=== PATIENT | female | born 1955 | race Caucasian/White ===

== ENCOUNTER 2020-07-29 17:22 | Inpatient (IN) | payer SELFPAY ==
--- NOTE | ~2020-07-29 | XR_ITS ---
EXAMINATION: XR abdomen/kub 1V EXAM DATE: 08/01/2020 08:55 INDICATION: Colon obstruction . TECHNIQUE: Frontal projection(s) of the abdomen for interpretation. Comparison is made to prior exami nation from 07/29/2020. FINDINGS: Feeding tube is in position. There is severe distention of the colon to the sigmoid. No sm all bowel dilation. No suspicious soft tissue calcifications identified. There are no osseous abnorma lities identified. IMPRESSION: 1. Sigmoid obstruction with severely distended colon proximal to this. The Reviewed, dictated and finalized at location A.
--- NOTE | ~2020-07-29 | XR_ITS ---
EXAMINATION: XR abdomen NG/feed tube insert DATE: 07/29/2020 21:45 INDICATION: Nasogastric tube placement TECHNIQUE: A supine view of the abdomen and lower chest was obtained for evaluation of feeding tube placement. COMPARISON: CT dated 07/29/2020 FINDINGS: Nasogastric tube tip in proximal side port in the body of the stomach. Small amount of excreted contr ast at the bilateral renal collecting systems from the recent prior contrast enhanced CT . Air-fluid level at the splenic flexure of the colon consistent with diarrhea. Visualized mid to lower lungs are clear. Heart size is normal. IMPRESSION: 1. Nasogastric tube in the stomach. Reviewed, dictated and finalized at location A.
--- NOTE | ~2020-07-29 | CT_ITS ---
EXAMINATION: CT abdomen pelvis w con DATE: 07/29/2020 18:36 INDICATION: Lower abdominal pain TECHNIQUE: Computed tomography (CT) of the abdomen and pelvis was performed with 100 mL Omnipaque-350 intravenous contrast. Automated exposure control and iterative reconstruction technique were employe d. The dose-length product was 435.01 mGy-cm. COMPARISON: None FINDINGS: Calcified left lower lobe nodule consistent with old granulomatous disease. Small sliding-type hiatal hernia. Visualized inferior heart appears normal. No pericardial or pleural effusion. There are 3 sm all low-attenuation hepatic lesions, the largest measuring 1.2 cm. Gallbladder, spleen, pancreas, susan ateral adrenal glands and kidneys are normal. There is a large amount of stool in the colon upstream from a 9 cm long stenosing annular mass of the sigmoid colon demonstrating asymmetric circumferential wall thickening with shouldering highly suspicious for obstructing colon cancer. Small bowel is norm al. The appendix is not visualized. No pericecal inflammatory change to suggest acute appendicitis. B ladder is normal. The uterus is not identified and has likely been surgically resected. No free intra peritoneal gas or fluid. No pathologically enlarged abdominal or pelvic lymphadenopathy. Moderate to severe lower lumbar spondylosis. IMPRESSION: 1. Obstructing annular mass in the sigmoid colon highly suspicious for colon cancer. Recommend colono scopy for further evaluation. 2. 3 small low-attenuation hepatic lesions most likely hepatic cysts or hemangiomas although the larg est demonstrates a couple tiny central foci of higher attenuation and could not absolutely exclude ma lignancy either primary or metastatic. Consider further evaluation with pre and postcontrast MRI. 3. Small sliding-type hiatal hernia. Reviewed, dictated and finalized at location A. IMPRESSION: 1. Obstructing annular mass in the sigmoid colon highly suspicious for colon ca ncer. Recommend colonoscopy for further evaluation. 2. 3 small low-attenuation hepatic lesions most likely hepatic cysts or hemangi omas although the largest demonstrates a couple tiny central foci of higher att enuation and could not absolutely exclude malignancy either primary or metastat ic. Consider further evaluation with pre and postcontrast MRI. 3. Small sliding-type hiatal hernia.
[2020-07-29 17:24] VITALS: BP 129/84; PULSE 93; RESP 16; TEMP 36.7; O2SAT 98
[2020-07-29 17:46] LABS: Basophils Absolute Auto 0.1 K/mm3 (0.0-0.1); Basophils Percent Auto 0.4 % (0.2-1.2); Eosinophils Absolute Auto 0.1 K/mm3 (0-0.3); Eosinophils Percent Auto 0.7 % (0-4.4); Hematocrit 40.9 % (37.0-47.0); Hemoglobin 13.6 g/dL (12.0-15.0); Immature Granulocyte Absolute 0.03 K/mm3 (0.00-0.031); Immature Granulocyte Percent A 0.2 % (0-0.5); Lymphocytes Absolute Auto 3.72 K/mm3 (0.9-3.2); Lymphocytes Percent Auto 27.6 % (18.3-44.2); Mean Corpuscular HGB Conc 33.3 g/dl (32-36); Mean Corpuscular Hemoglobin 28.5 pg (26-34); Mean Corpuscular Volume 85.6 fl (80-100); Mean Platelet Volume 9.9 fl (7.4-10.4); Monocytes Absolute Auto 0.9 K/mm3 (0.1-0.6); Neutrophils Absolute Auto 8.6 K/mm3 (1.3-6.7); Neutrophils Percent Auto 64.1 % (45.5-73.1); Platelet Count Result 364 k/mm3 (150-375); Red Blood Count 4.78 M/mm3 (4.2-5.4); Red Cell Distribution Width 13.3 % (11.5-14.5); White Blood Count 13.5 K/mm3 (4.5-10.0)
[2020-07-29 17:50] VITALS: BP 129/84; PULSE 93; RESP 20; TEMP 36.7; O2SAT 98
[2020-07-29 17:56] LABS: Alanine Aminotransferase 21 U/L (4-35); Albumin Level 4.8 g/dL (3.5-5.1); Alkaline Phosphatase 87 U/L (38-126); Anion Gap 12 mmol/L (8-16); Aspartate Amino Transferase 26 U/L (14-36); Bilirubin,Total 0.7 mg/dL (0.2-1.3); Blood Urea Nitrogen 16 mg/dL (7-17); Calcium 10.2 mg/dL (8.4-10.2); Carbon Dioxide 25 mmol/L (22-30); Chloride 103 mmol/L (98-107); Estimated CRCL calculation 56 ml/min; Estimated Glomerular Filt Rate > 60; Glucose 115 mg/dL (65-105); Lipase 50 U/L (23-300); Potassium 3.2 mmol/L (3.4-5.0); Sodium 140 mmol/L (137-145)
--- NOTE | 2020-07-29 18:19 | ED.ABDPAIN ---
HPI - Abdominal Pain General Chief Complaint: Abdominal Pain Stated Complaint: abd pain Time Seen by Provider: 07/29/20 18:18 Source: patient and family Mode of arrival: ambulatory Limitations: no limitations History of Present Illness HPI narrative: Patient is 65 years old white female presents with lower abdominal pain started 2 weeks ago, got worse over the last 4 days. Today associated with nausea and frequent vomiting. Pain is gas-like feeling, constipation-like feeling, no radiation. Patient denies any fever or chills. Patient is a smoker, brother 4 years older than her had history of esophageal cancer for the last 10 years, does not take any medication at home, ilns-uln-axreeth antacid for acid reflux. No family history of colon cancer. History of hysterectomy and appendectomy Related Data Allergies Allergy/AdvReac Type Severity Reaction Status Date / Time No Known Allergies Allergy Verified 07/29/20 18:38 Review of Systems Review of Systems: Narrative: CONSTITUTIONAL: Denies fever, chills, or sweats. EYES: Denies visual changes, redness, or discharge. ENT: Denies rhinorrhea, congestion, sore throat, or otalgia. CARDIOVASCULAR: Denies chest pain, palpitations, or edema. RESPIRATORY: Denies cough or dyspnea. GASTROINTESTINAL: Denies abdominal pain, nausea, vomiting, or diarrhea. GENITOURINARY: Denies dysuria or hematuria. SKIN: Denies rash or itching. MUSCULOSKELETAL: Denies back pain, joint pain, or myalgia. NEUROLOGIC: Denies headache, numbness, or weakness. PSYCHIATRIC: Denies anxiety or depression. Exam Narrative: Exam Narrative: General appearance: Well-developed, well-nourished, sister at the bedside Skin: Normal color Head: Normocephalic, nontraumatic Eyes: Clear conjunctiva ENT: Oropharynx normal, ears normal, nose normal Neck: Supple, nontender Chest and respiratory: Airway patent, no respiratory distress, no accessory muscle use Heart: Regular rate/rhythm Abdomen: Soft, diffuse tenderness lower abdomen mainly right lower quadrant. No guarding or rebound, no organomegaly, quiet bowel sounds Vascular: Normal peripheral pulses, normal capillary refill. Musculoskeletal: Normal range of motion, nontender back Neurologic: Alert and oriented ?3, GI PHYSICIAN is normal as tested, no gross motor deficit Course Course Emergency Course: Stable Consultations Consultation #1: Dr. Albright Date: 07/29/20 Time: 21:26 Consultation #2: DR CHAVEZ Date: 07/29/20 Time: 21:26 Vital Signs Vital signs: Vital Signs Temperature 36.7 C 07/29/20 17:24 Pulse Rate 93 07/29/20 17:24 Respiratory Rate 16 07/29/20 17:24 Blood Pressure 129/84 07/29/20 17:24 Pulse Oximetry 98 07/29/20 17:24 Temperature 36.7 C 07/29/20 17:50 Pulse Rate 96 07/29/20 20:15 Respiratory Rate 16 07/29/20 20:15 Blood Pressure 159/78 H 07/29/20 20:30 Pulse Oximetry 93 07/29/20 20:30 MDM - Abdominal Pain MDM Narrative Medical decision making narrative: Physical exam showed diffuse tenderness mainly right lower quadrant consistent with CAT scan result of obstructing colon mass with constipation. Patient had nausea and frequent vomiting. Patient will be admitted, NG tube ordered. GI consult, surgical consult ordered. Risk factor of colon cancers are history of smoking, family history of esophageal cancer, patient never had colonoscopy in the past. Differential Diagnosis Differential diagnosis: Likely abdominal pain, constipation, diverticulitis and small bowel obstruction Lab Data Result diagrams: 07/29/20 17:40 07/29/20 17:40 Labs: Lab Results 07/29/20 07/29/20 07/29/20 Range/Units 17:40 17:40 20:11 WBC 13.5
[2020-07-29] MEDS: SODIUM CHLORIDE 0.9% IV 1,000 ML 999 ML IV CONT (18:38)
[2020-07-29 19:15] VITALS: BP 161/77; PULSE 85; RESP 16; O2SAT 97
[2020-07-29 20:15] VITALS: BP 150/72; PULSE 96; RESP 16; O2SAT 94
[2020-07-29 20:30] VITALS: BP 159/78; O2SAT 93
[2020-07-29 20:30] LABS: Add Urine Microscopic? YES; Appearance Urine Clear (Clear); Bilirubin Urine Negative (Negative); Blood Urine 2+ (Negative); Color Urine Yellow (Yellow); Glucose Urine UA Negative (Negative); Ketones Urine 1+ mg/dL (Negative); Leukocyte Esterase Ur Negative LEU/UL (Negative); Mucus Urine Rare /lpf; Nitrate Urine Negative (Negative); Protein Urine Negative (Negative); Squamous Epithelial Cell Urine Rare /hpf (Few); Urobilinogen Urine Negative mg/dL (<2.0); WBC Urine 0-3 /hpf
[2020-07-29 20:38] LABS: Specific Grav Ur 1.005 (1.001-1.035)
[2020-07-29] MEDS: ONDANSETRON INJ 4 MG/2 ML VIAL IV PUSH (21:07)
[2020-07-29] MEDS: HYDROmorphone HCL INJ (*CRX) 1 MG/ML SYR 0.5 MG IV PUSH ×2 (21:10→22:52)
--- NOTE | 2020-07-29 22:10 | ADMGEN ---
This patient, Noemi Byrd, was admitted to Medical Room 252-01. Patient/family oriented to hospital policies and general routines including ID bracelet, bed and alarms, visiting hours, pain management, procedures, bathroom and other care routines, personal items, smoking policy, room service/diet, and visiting hours. Information on how to activate the Rapid Response Team has been discussed. Patient/Family are encouraged to report perceived risks to care and to ask questions if they do not understand what they are told or what they should do.
[2020-07-29 22:29] VITALS: BP 151/76; PULSE 91; RESP 20; TEMP 37.3; O2SAT 92; BMI 25.2
[2020-07-29] MEDS: SODIUM CHLORIDE 0.9% IV 1,000 ML 150 ML IV CONT (22:33)
[2020-07-30] VITALS (7 sets, daily range): BP systolic 143–155; BP diastolic 62–71; PULSE 73–87; RESP 16–20; TEMP 36.2–37.1; O2SAT 92–97
[2020-07-30] MEDS: SODIUM CHLORIDE 0.9% IV 1,000 ML 150 ML IV CONT (05:09)
[2020-07-30 05:43] LABS: Anion Gap 5 mmol/L (8-16); Blood Urea Nitrogen 14 mg/dL (7-17); Calcium 8.3 mg/dL (8.4-10.2); Carbon Dioxide 24 mmol/L (22-30); Chloride 109 mmol/L (98-107); Estimated CRCL calculation 62 ml/min; Estimated Glomerular Filt Rate > 60; Glucose 95 mg/dL (65-105); Potassium 2.9 mmol/L (3.4-5.0); Sodium 138 mmol/L (137-145)
[2020-07-30] MEDS: HYDROmorphone HCL INJ (*CRX) 1 MG/ML SYR 0.5 MG IV PUSH ×3 (06:20→20:51)
[2020-07-30 07:45] LABS: Magnesium 1.9 mg/dL (1.6-2.3)
--- NOTE | 2020-07-30 08:50 | PM.IMHP ---
H&P: HPI History of Present Illness Date/Time: 07/30/20 08:50 Chief Complaint: abdominal pain Narrative: This is a 65 year old woman with history of heartburn, who presented to the ER with complaints of gradually worsening abdominal pain. Patient states for the last 1 month she has been noticing intermittent abdominal pain to her mid lower abdomen that is intermittently spasming, sharp in nature. She also has been having small palpable like stools as well as trouble passing gas. Patient states for the last 2 weeks she has not noticed any flatulence well as more frequent and worsening abdominal pain and decreased appetite. Been for the last 2 days she has been having worsening abdominal pain, nausea, vomiting up anything she eats or drinks. She also reports having fatigue over the last month as well and worsening last 2 days. She thought her fatigue was due to work. She denies any fevers, chills, chest pain, shortness of breath, cough, leg swelling, calf pain, dysuria, frequent urination, lightheadedness, dizziness, weight loss, blood in her stool, dark tarry stools, or any other symptoms at this time. The patient has not seen a primary care doctor in over 10 years when she was living in [place]. Since leaving here she has not established care with any provider. She has no family history of rectal or colon cancer. Code Status- Full Code POA- Sister, Gertrudis Serrano PCP- None Review of Systems Review of Systems: All systems reviewed & are unremarkable except as noted in HPI and below PMFSH Past Medical History Medical History GERD (gastroesophageal reflux disease) Surgical History Surgical History History of total abdominal hysterectomy and bilateral salpingo-oophorectomy with incidental appendectomy Family History Family History Father Acute myocardial infarction Chronic obstructive pulmonary disease Congestive heart failure Hypertension Mother Hypertension Sibling Esophageal cancer Sibling Breast cancer Social History Social History (Updated 07/30/20 @ 10:33 by Graciela Lucas PA-C) Social History: Wishes to be a full code. Years smoked: 30 Smoking status: Current every day smoker Tobacco type: cigarettes Alcohol intake: never Alcohol use details: Rare alcohol use Substance use: never Living arrangements: with family Additional living arrangements comments: Lives with her sister. 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 Gender identity (if verbalized by the patient): Female Spiritual care concerns: No Meds Home Medications and Allergies Home Medications Medication Instructions Recorded Confirmed Type omeprazole 10 mg PO DAILY 07/29/20 07/29/20 History Allergies Allergy/AdvReac Type Severity Reaction Status Date / Time No Known Allergies Allergy Verified 07/29/20 22:34 Vital Signs Vital Signs - 24 hr 07/29/20 17:24 07/29/20 17:50 07/29/20 19:15 Temperature 98.0 F 98.0 F Pulse Rate 93 93 85 Respiratory Rate 16 20 16 Blood Pressure 129/84 129/84 161/77 H Pulse Oximetry 98 98 97 07/29/20 20:15 07/29/20 20:30 07/29/20 22:29 Temperature 99.2 F Pulse Rate 96 91 Respiratory Rate 16 20 Blood Pressure 150/72 H 159/78 H 151/76 H Pulse Oximetry 94 93 92 07/30/20 04:57 07/30/20 06:58 Temperature 98.7 F Pulse Rate 81 Respiratory Rate 16 Blood Pressure 155/68 H Pulse Oximetry 94 94 Exam Narrative: Exam Narrative: General: 65-year-old woman laying flat in bed with head elevated at 60 degrees, with NG tube in place. Appears comfortable, with intermittent wincing in pain and holding lower abdomen. In no acute distress. Skin: No jaundice or cyanosis. G
--- NOTE | 2020-07-30 09:02 | PM.CNGS ---
Assessment and Plan Assessment and plan (1) Bowel obstruction: Qualifiers: Intestinal obstruction extent: unspecified extent Intestinal obstruction type: unspecified Qualified Code(s): K56.609 - Unspecified intestinal obstruction, unspecified as to partial versus complete obstruction Code(s): K56.609 - Unspecified intestinal obstruction, unspecified as to partial versus complete obstruction Status: Acute Assessment and Plan: CT scan reviewed and discussed with the patient in detail. There is evidence of an obstructing sigmoid colon mass concerning for colon cancer. There are also a few small liver lesions noted on the CT, which could be benign lesions or possible metastatic disease. Patient has no history of a colonoscopy in the past. She is not currently having any bowel function. We will continue with NG tube decompression, NPO, and IV fluids. Patient may be a potential candidate for flexible sigmoidoscopy. GI has been consulted. Will await their recommendations. Will repeat her abdominal exam and labs tomorrow, including a CEA level. Thank you for allowing us to see the patient in consultation and we will continue to follow along with you. (2) Colonic mass: Code(s): K63.89 - Other specified diseases of intestine Status: Acute Additional Plan I have discussed the patient's case and plan of care with Dr. Harper. History of Present Illness Consult details Consult date: 07/30/20 Reason for consult: other (Obstructing sigmoid colon mass) Requesting physician: Sugey Lynn MD Narrative: This is a 65-year-old female who presented to the emergency department last night for evaluation of abdominal pain. She reports noticing a change in her bowel habits over a month ago. Her stools became very small and mucousy. She felt she was constipated. She developed lower abdominal pain 2 weeks ago, which has progressively worsened and became severe over the last 2 days. She also reports nausea with a few episodes of nonbloody vomiting for the past few days. She denies flatus for the past week. Due to the worsening abdominal pain, she presented to the ER for evaluation. CT scan of abdomen pelvis showed an obstructing annular mass in the sigmoid colon highly suspicious for colon cancer, and 3 small low-attenuation hepatic lesions. Labs revealed mild leukocytosis and mild hypokalemia. The patient was admitted to the hospitalist service. Our service has been consulted for the obstructing sigmoid colon mass. Gastroenterology has also been consulted. The patient is now seen on the medical floor. She denies any flatus. Her last very small mucousy bowel movement was yesterday morning. Denies any recent weight loss. Reports fatigue over the past 6 months, but attributed this to her job. Denies hematochezia or melena. No history of a colonoscopy. No family history of colorectal cancer. She has not seen a primary care provider in over 10 years after moving here from [place]. Review of Systems Review of Systems: All systems reviewed & are unremarkable except as noted in HPI and below Constitutional: Constitutional: Reports as per HPI, Denies chills, Denies fatigue and Denies fever(s) Eyes: Eyes: Reports no additional eye complaints and Denies change in vision ENT: Reports system reviewed and no additional complaints, except as documented, Reports Normal hearing present and Denies dizziness Cardiovascular: Cardiovascular: Reports no additional cardiovascular complaints, Denies chest pain, Denies leg edema and Denies dyspnea Respiratory: Respiratory: Reports no additional respiratory complaints, Denies cough and Denies dyspnea Gastrointestinal: Gastrointestinal: Reports as per HPI, Reports no additional gastrointestinal complaints, Reports abdominal pain (lower), Denies melena, Reports bloating, Reports hematochezia (red-streaking blood from hemorrhoids), Reports change in bowel habits (smaller BMs x 1 month
[2020-07-30] MEDS: PANTOPRAZOLE SODIUM IV 40 MG VIAL IV PUSH ×2 (09:17→20:48)
[2020-07-30] MEDS: ONDANSETRON INJ 4 MG/2 ML VIAL IV PUSH ×3 (09:17→20:50)
[2020-07-30 14:39] LABS: Potassium 2.9 mmol/L (3.4-5.0)
--- NOTE | 2020-07-30 14:49 | WPDGICN ---
Assessment and Plan Assessment and plan (1) Colonic mass: Code(s): K63.89 - Other specified diseases of intestine Status: Acute Assessment and Plan: sigmoid mass by CT scan, most likely cancer will do colonoscopy tomorrow (never had one), get CEA level. patient will try to drink bowel prep as much as she can tolerate (2) Bowel obstruction: Qualifiers: Intestinal obstruction extent: unspecified extent Intestinal obstruction type: unspecified Qualified Code(s): K56.609 - Unspecified intestinal obstruction, unspecified as to partial versus complete obstruction Code(s): K56.609 - Unspecified intestinal obstruction, unspecified as to partial versus complete obstruction Status: Acute Assessment and Plan: from sigmoid mass (3) Constipation: Qualifiers: Constipation type: slow transit constipation Qualified Code(s): K59.01 - Slow transit constipation Code(s): K59.00 - Constipation, unspecified Status: Acute (4) Lower abdominal pain: Code(s): R10.30 - Lower abdominal pain, unspecified Status: Acute (5) Nausea and vomiting in adult: Code(s): R11.2 - Nausea with vomiting, unspecified Status: Acute Assessment and Plan: ngt in place, medical support GI Consult Note Consult date/time: 07/30/20 14:49 Reason for consult: sigmoid obstruction HPI: Noemi Byrd is a 65 year old female with history of heartburn who has not seen a doctor for years. She came to the ER with gradually worsening abdominal pain. She says that last several weeks noted change in bowel pattern with pencil-thin stools as well as trouble passing gas and more constipated than usual. Finally pain increased intensity last 2 weeks but progressively worsened and more severe over the last 2 days. She had nausea and also emesis. She has not pass gas and finally decided to come here. CT scan of abdomen pelvis reviewed, showed an obstructing annular mass in the sigmoid colon highly suspicious for colon cancer, and 3 small low-attenuation hepatic lesions. She never had a colonoscopy. NGT in place and surgery on board. Review of Systems Constitutional: Constitutional: Denies chills Eyes: Eyes: Reports no additional eye complaints ENT: Reports Normal hearing present Cardiovascular: Cardiovascular: Denies chest pain Respiratory: Respiratory: Denies dyspnea Gastrointestinal: Gastrointestinal: Reports abdominal pain, Reports constipation, Reports nausea and Reports vomiting Genitourinary: Genitourinary: Denies hematuria Musculoskeletal: Musculoskeletal: Denies neck pain Integumentary/Breasts: Skin/Breast: Denies dry skin Neurologic: Reports system reviewed and no additional complaints, except as documented Psychiatric: Psychiatric: Reports no additional psychiatric complaints [facility] Past Medical History Medical History (Updated 07/30/20 @ 14:59 by Sonny Mauro MD) GERD (gastroesophageal reflux disease) Lower abdominal pain Nausea and vomiting in adult Surgical History Surgical History History of total abdominal hysterectomy and bilateral salpingo-oophorectomy with incidental appendectomy Family History Family History Father Acute myocardial infarction Chronic obstructive pulmonary disease Congestive heart failure Hypertension Mother Hypertension Sibling Esophageal cancer Sibling Breast cancer Social History Social History (Updated 07/30/20 @ 10:33 by Graciela Lucas PA-C) Social History: Wishes to be a full code. Years smoked: 30 Smoking status: Current every day smoker Tobacco type: cigarettes Alcohol intake: never Alcohol use details: Rare alcohol use Substance use: never Living arrangements: with family Additional living arrangements comments: Lives with her sister. Dang
[2020-07-30 15:14] LABS: Carcinoembryonic Antigen 1.9 ng/mL (0.0-3.0)
[2020-07-30] MEDS: polyethylene glycoL 3350 238 GM BOTTLE PO (16:47)
[2020-07-30] MEDS: BISACODYL 5 MG TABLET EC PO (16:48)
--- NOTE | 2020-07-30 23:10 | PC.NURSE ---
Prince Arellano RNLP has provided care and documentation for patient from 7 pm till 7:30 am, I have reviewed documentation and care.
[2020-07-30] MEDS: SODIUM CHLORIDE 0.9% IV 1,000 ML 75 ML IV CONT (23:43)
[2020-07-31] VITALS (11 sets, daily range): BP systolic 138–164; BP diastolic 59–85; PULSE 70–90; RESP 14–24; TEMP 36–36.7; O2SAT 95–100
[2020-07-31] MEDS: ONDANSETRON INJ 4 MG/2 ML VIAL IV PUSH ×3 (05:08→14:13)
[2020-07-31] MEDS: HYDROmorphone HCL INJ (*CRX) 1 MG/ML SYR 0.5 MG IV PUSH ×3 (05:09→20:20)
[2020-07-31 05:46] LABS: Basophils Percent Auto 0.3 % (0.2-1.2); Eosinophils Percent Auto 0.2 % (0-4.4); Hematocrit 36.3 % (37.0-47.0); Immature Granulocyte Absolute 0.06 K/mm3 (0.00-0.031); Immature Granulocyte Percent A 0.5 % (0-0.5); Lymphocytes Absolute Auto 1.47 K/mm3 (0.9-3.2); Lymphocytes Percent Auto 11.8 % (18.3-44.2); Mean Corpuscular HGB Conc 33.1 g/dl (32-36); Mean Corpuscular Hemoglobin 27.8 pg (26-34); Mean Corpuscular Volume 84.2 fl (80-100); Mean Platelet Volume 9.7 fl (7.4-10.4); Monocytes Absolute Auto 0.8 K/mm3 (0.1-0.6); Neutrophils Absolute Auto 10.1 K/mm3 (1.3-6.7); Neutrophils Percent Auto 81.2 % (45.5-73.1); Platelet Count Result 295 k/mm3 (150-375); Red Blood Count 4.31 M/mm3 (4.2-5.4); Red Cell Distribution Width 13.3 % (11.5-14.5); White Blood Count 12.5 K/mm3 (4.5-10.0)
[2020-07-31 05:57] LABS: Anion Gap 8 mmol/L (8-16); Blood Urea Nitrogen 11 mg/dL (7-17); Carbon Dioxide 23 mmol/L (22-30); Chloride 107 mmol/L (98-107); Estimated CRCL calculation 71 ml/min; Estimated Glomerular Filt Rate > 60; Glucose 99 mg/dL (65-105); Potassium 3.5 mmol/L (3.4-5.0); Sodium 138 mmol/L (137-145)
[2020-07-31] MEDS: PANTOPRAZOLE SODIUM IV 40 MG VIAL IV PUSH ×2 (09:33→20:16)
--- NOTE | 2020-07-31 09:49 | PM.PNGS ---
Progress Note: A&P Assessment and Plan (1) Bowel obstruction: Qualifiers: Intestinal obstruction extent: unspecified extent Intestinal obstruction type: unspecified Qualified Code(s): K56.609 - Unspecified intestinal obstruction, unspecified as to partial versus complete obstruction Code(s): K56.609 - Unspecified intestinal obstruction, unspecified as to partial versus complete obstruction Status: Acute Assessment and Plan: Bowel obstruction secondary to sigmoid colon mass. GI planning for colonoscopy today. Patient had difficulties with tolerating prep, but did eventually have a few bowel movements. Will await findings from endoscopy. Continue NG tube decompression, NPO, and IV fluids. (2) Colonic mass: Code(s): K63.89 - Other specified diseases of intestine Status: Acute Assessment and Plan: Sigmoid mass concerning for malignancy. GI planning colonoscopy. CEA 1.9. See plan above. (3) Lesion of liver: Code(s): K76.9 - Liver disease, unspecified Status: Acute Additional Plan I have discussed the plan of care with Dr. Harper. Subjective Subjective Date/Time Seen: 07/31/20 09:00 Patient reports: no new complaints, pain is less (abd pain somewhat improved) and flatus Interval history: Patient reports having difficulty tolerating the prep yesterday. She has had multiple episodes of vomiting overnight. She has had 3 bowel movements between the oral prep and enema. She feels her bloating and abdominal pain have improved. No other complaints at this time. Review of Systems Review of Systems: All systems reviewed & are unremarkable except as noted in HPI and below Exam Const: General: no acute distress, alert and awake GI: Inspection: other (less distended today) GI Palp: Yes Soft to palpation, Yes Tenderness to palpation present (GI) (mild upper abd tenderness), No Guarding due to palpation present (GI) and No Rebound tenderness present Auscultation: Hypoactive bowel sounds present Neuro: General: moves all extremities and no focal motor deficits Extrem: General: no clubbing, cyanosis or edema Psych: Mental Status: mental status grossly normal Insight: Good insight present (Psych) Judgement: Good judgement present (Psych) Objective Data Vital Signs Vital Signs: Vital Signs - 24 hr 07/30/20 10:00 07/30/20 14:32 07/30/20 16:00 Temperature 97.1 F L 97.4 F L 97.6 F Pulse Rate 73 76 87 Respiratory Rate 20 18 18 Blood Pressure 143/62 H 152/71 H 151/66 H Pulse Oximetry 95 97 95 07/30/20 21:14 07/30/20 21:35 07/31/20 00:00 Temperature 97.4 F L 96.8 F L Pulse Rate 81 76 Respiratory Rate 16 16 Blood Pressure 150/64 H 151/66 H Pulse Oximetry 92 93 95 07/31/20 04:00 07/31/20 08:00 Temperature 97.1 F L 97.6 F Pulse Rate 90 76 Respiratory Rate 16 16 Blood Pressure 149/75 H 150/79 H Pulse Oximetry 97 98 Intake/Output Intake/Output: Intake & Output 07/28/20 07/29/20 07/30/20 07/31/20 23:59 23:59 23:59 23:59 Intake Total 1000 2500 Output Total 550 850 Balance 1000 1950 -850 Meds/Results Medications: Active Medications Generic Name Dose Route Start Last Admin Trade Name Freq PRN Reason Stop Dose Admin Hydromorphone HCl 0.5 mg 07/29/20 21:00 07/31/20 05:09 Hydromorphone Hcl Inj (*Crx) 1 Mg/Ml Syr IV PUSH 0.5 mg Q4H PRN Administration Pain Rated 7-10 Sodium Chloride 1,000 mls @ 75 mls/hr 07/29/20 21:05 07/30/20 23:43 Normal Saline Iv IV CONT 75 mls/hr .[id number] MATT Administration Acetaminophen 1,000 mg in 100 mls @ 400 mls/hr 07/30/20 11:35 Ofirmev 1,000 Mg Ivpb IVPB 08/02/20 11:32 Q6H PRN Pain 1-6 Nicotine 1 patch 07/30/20 10:32 Nicotine (*Pbkc) 7 Mg Patch TRANSDERM PRN PRN Nicotine cravings Ondansetron HCl 4 mg 07/29/20 21:00 07/31/20 05:08 Ondansetron Inj 4 Mg/2 Ml Vial IV PUSH 4 mg Q4H PRN Administration Nausea Pantoprazole Sodium 40 mg 04
--- NOTE | 2020-07-31 10:24 | PM.IMPN ---
Progress Note: A&P Assessment and Plan (1) Bowel obstruction: Qualifiers: Intestinal obstruction extent: unspecified extent Intestinal obstruction type: unspecified Qualified Code(s): K56.609 - Unspecified intestinal obstruction, unspecified as to partial versus complete obstruction Code(s): K56.609 - Unspecified intestinal obstruction, unspecified as to partial versus complete obstruction Status: Acute Assessment and Plan: Patient brought into the hospital after being found to have an obstructing annular mass in the sigmoid colon which is highly suspicious for colon cancer. This was causing an obstruction so NG tube was placed to intermittent suction. GI is going to preform colonoscopy today. Surgery and GI were consulted and their input is greatly appreciated For now the patient will remain NPO. IV fluid hydration. NG tube as per surgery team. Pain control, antiemetics Continue monitoring. (2) Colonic mass: Code(s): K63.89 - Other specified diseases of intestine Status: Acute Assessment and Plan: Will defer to surgery and GI. Appreciate their input. CEA testing is normal. (3) GERD (gastroesophageal reflux disease): Code(s): K21.9 - Gastro-esophageal reflux disease without esophagitis Status: Inactive Assessment and Plan: Continue PPI IV b.i.d.. (4) Hypokalemia: Code(s): E87.6 - Hypokalemia Status: Acute Assessment and Plan: Potassium was 3.5 this morning. Continue monitoring. Time Spent With Patient Time with patient: 25 - 35 minutes Subjective Date/time seen: 07/31/20 10:24 Interval history: Date of Service 07/31/20: Feeling well. Still uncomfortable with NG tube and intermittent abdominal pain/spasming. Denies chest pain, SOB, cough, fever, chills, nausea, leg swelling, calf pain. Review of Systems Review of Systems: All systems reviewed & are unremarkable except as noted in HPI and below Exam Narrative: Exam Narrative: General: 65-year-old woman sitting up in bed with head elevated at 60 degrees, with NG tube in place. Appears comfortable, just fatigued. In no acute distress. Skin: No jaundice or cyanosis. Good skin turgor. Neck: Full range of motion. Supple. Respiratory: Lungs are clear to auscultation bilaterally. No bony chest wall tenderness. Cardiovascular: The heart has a regular rate and rhythm without murmur. No carotid bruits. Lower extremities: No lower extremity edema. Distal pulses are easily palpated. No calf tenderness to palpation. Gastrointestinal: Abd distention, otherwise soft. Tenderness to palpation of lower abdomen. No guarding or rebounding. Hypoactive bowel sounds. Psychiatric: Lucid and oriented. Memory intact. Neurologic: No focal deficits. Speech is clear. No facial drooping. Objective Data Vital Signs Vital Signs: Vital Signs - 24 hr 07/30/20 14:32 07/30/20 16:00 07/30/20 21:14 Temperature 97.4 F L 97.6 F 97.4 F L Pulse Rate 76 87 81 Respiratory Rate 18 18 16 Blood Pressure 152/71 H 151/66 H 150/64 H Pulse Oximetry 97 95 92 07/30/20 21:35 07/31/20 00:00 07/31/20 04:00 Temperature 96.8 F L 97.1 F L Pulse Rate 76 90 Respiratory Rate 16 16 Blood Pressure 151/66 H 149/75 H Pulse Oximetry 93 95 97 07/31/20 08:00 07/31/20 10:06 Temperature 97.6 F 97.6 F Pulse Rate 76 82 Respiratory Rate 16 18 Blood Pressure 150/79 H 126/50 L Pulse Oximetry 98 96 Intake/Output Intake/Output: Intake & Output 07/28/20 07/29/20 07/30/20 07/31/20 23:59 23:59 23:59 23:59 Intake Total 1000 2500 Output Total 550 850 Balance 1000 1950 -850 Meds/Results Medications: Active Medications Generic Name Dose Route Start Last Admin Trade Name Freq PRN Reason Stop Dose Admin Hyd
--- NOTE | 2020-07-31 11:15 | PC.NURSE ---
Sent to GI lab via wheelchair with GI lab staff. IVF locked off. NGT clamped off. Dr. Mauro notified that patient had one enema and tolerated it poorly. Per Dr. Mauro, second enema held.
[2020-07-31] MEDS: LACTATED RINGERS 1,000 ML 150 ML IV CONT (12:00)
--- NOTE | 2020-07-31 12:02 | WPDANESEPPF ---
Anes - Initial Pre Proc Eval Procedure: Operation Date: 07/31/20 13:00 Proposed Procedures p Colonoscopy - Sonny Mauro MD Date/Time: 07/31/20 12:02 Surgeon: Graciela Lucas PA-C Pre Op Diagnosis: Obstructing colon mass, constipation Patient Data Age: 65 Gender: F Height: 5 ft 8 in Weight: 75.2 kg Last Vital Signs Temp 98.0 F 07/31/20 11:38 Pulse 74 07/31/20 11:38 Resp 17 07/31/20 11:38 BP 164/70 H 07/31/20 11:38 Pulse Ox 97 07/31/20 11:38 Allergies Allergy/AdvReac Type Severity Reaction Status Date / Time No Known Allergies Allergy Verified 07/31/20 11:37 Home Medications Medication Instructions Recorded Confirmed Type omeprazole 10 mg PO DAILY 07/29/20 07/31/20 History Laboratory Tests 07/30/20 07/30/20 07/31/20 14:06 14:06 05:31 WBC 12.5 K/mm3 H K/mm3 (4.5-10.0) RBC 4.31 M/mm3 M/mm3 (4.2-5.4) Hgb 12.0 g/dL g/dL (12.0-15.0) Hct 36.3 % L % (37.0-47.0) MCV 84.2 fl fl (80-100) MCH 27.8 pg pg (26-34) MCHC 33.1 g/dl g/dl (32-36) RDW 13.3 % % (11.5-14.5) Plt Count 295 k/mm3 k/mm3 (150-375) MPV 9.7 fl fl (7.4-10.4) Immature Gran % (Auto) 0.5 % % (0-0.5) Neut % (Auto) 81.2 % H % (45.5-73.1) Lymph % (Auto) 11.8 % L % (18.3-44.2) Treasure % (Auto) 6.0 % % (2.6-8.5) Eos % (Auto) 0.2 % % (0-4.4) Baso % (Auto) 0.3 % % (0.2-1.2) Lymph # (Auto) 1.47 K/mm3 K/mm3 (0.9-3.2) Treasure # (Auto) 0.8 K/mm3 H K/mm3 (0.1-0.6) Eos # (Auto) 0.0 K/mm3 K/mm3 (0-0.3) Baso # (Auto) 0.0 K/mm3 K/mm3 (0.0-0.1) Abs Immat Gran (auto) 0.06 K/mm3 H K/mm3 (0.00-0.031) Absolute Neuts (auto) 10.1 K/mm3 H K/mm3 (1.3-6.7) Absolute Nucleated RBC 0.0 K/mm3 K/mm3 (0.0-0.012) Nucleated RBC % 0.0 % % (0.0-0.2) Sodium Potassium 2.9 mmol/L L mmol/L (3.4-5.0) Chloride Carbon Dioxide Anion Gap BUN Creatinine Estim Creat Clear Calc Estimated GFR Glucose Calcium Carcinoembryonic Ag 1.9 ng/mL ng/mL (0.0-3.0) 07/31/20 05:31 WBC RBC Hgb Hct MCV MCH MCHC RDW Plt Count MPV Immature Gran % (Auto) Neut % (Auto) Lymph % (Auto) Treasure % (Auto) Eos % (Auto) Baso % (Auto) Lymph # (Auto) Treasure # (Auto) Eos # (Auto) Baso # (Auto) Abs Immat Gran (auto) Absolute Neuts (auto) Absolute Nucleated RBC Nucleated RBC % Sodium 138 mmol/L mmol/L (137-145) Potassium 3.5 mmol/L mmol/L (3.4-5.0) Chloride 107 mmol/L mmol/L (98-107) Carbon Dioxide 23 mmol/L mmol/L (22-30) Anion Gap 8 mmol/L mmol/L (8-16) BUN 11 mg/dL mg/dL (7-17) Creatinine 0.70 mg/dL mg/dL (0.7-1.0) Estim Creat Clear Calc 71 ml/min ml/min Estimated GFR > 60 (59 - ) Glucose 99 mg/dL mg/dL (65-105) Calcium 9.0 mg/dL mg/dL (8.4-10.2) Carcinoembryonic Ag Patient hx anesthesia problems: none Family hx anesthesia problems: none [facility] Past Medical History Medical History (Updated 07/31/20 @ 10:03 by ISABEL Swift) GERD (gastroesophageal reflux disease) Lower abdominal pain Nausea and vomiting in adult Surgical History Surgical History History of total abdominal hysterectomy and bilateral salpingo-oophorectomy with incidental appendectomy Family History Family History Father Acute myocardial infarction Chronic obstructive pulmonary disease Congestive heart failure Hypertension Mother
--- NOTE | 2020-07-31 13:41 | PC.NURSE ---
On 07/31/20, the student, [Althea Odonnell ], provided care and completed [facility] documentation on this patient. I have reviewed the student's documentation and agree with the findings.
--- NOTE | 2020-07-31 13:45 | PC.NURSE ---
Patient returned from GI lab via stretcher with GI staff. Settled into room. NGT returned to LIS. Patient c/o pain and nausea.
[2020-07-31] MEDS: SODIUM CHLORIDE 0.9% IV 1,000 ML 75 ML IV CONT (17:44)
[2020-08-01] VITALS (7 sets, daily range): BP systolic 137–160; BP diastolic 57–78; PULSE 74–87; RESP 14–20; TEMP 36.4–37; O2SAT 95–98
[2020-08-01] MEDS: HYDROmorphone HCL INJ (*CRX) 1 MG/ML SYR 0.5 MG IV PUSH ×4 (02:59→23:48)
[2020-08-01 05:34] LABS: Basophils Absolute Auto 0.1 K/mm3 (0.0-0.1); Basophils Percent Auto 0.5 % (0.2-1.2); Eosinophils Absolute Auto 0.2 K/mm3 (0-0.3); Eosinophils Percent Auto 1.3 % (0-4.4); Hematocrit 38.7 % (37.0-47.0); Hemoglobin 12.7 g/dL (12.0-15.0); Immature Granulocyte Absolute 0.04 K/mm3 (0.00-0.031); Immature Granulocyte Percent A 0.3 % (0-0.5); Lymphocytes Absolute Auto 1.92 K/mm3 (0.9-3.2); Lymphocytes Percent Auto 15.4 % (18.3-44.2); Mean Corpuscular HGB Conc 32.8 g/dl (32-36); Mean Corpuscular Hemoglobin 28.5 pg (26-34); Mean Corpuscular Volume 86.8 fl (80-100); Mean Platelet Volume 10.3 fl (7.4-10.4); Monocytes Absolute Auto 0.9 K/mm3 (0.1-0.6); Monocytes Percent Auto 7.4 % (2.6-8.5); Neutrophils Absolute Auto 9.4 K/mm3 (1.3-6.7); Neutrophils Percent Auto 75.1 % (45.5-73.1); Platelet Count Result 302 k/mm3 (150-375); Red Blood Count 4.46 M/mm3 (4.2-5.4); Red Cell Distribution Width 13.4 % (11.5-14.5); White Blood Count 12.5 K/mm3 (4.5-10.0)
[2020-08-01 05:40] LABS: Anion Gap 5 mmol/L (8-16); Blood Urea Nitrogen 11 mg/dL (7-17); Calcium 8.4 mg/dL (8.4-10.2); Carbon Dioxide 28 mmol/L (22-30); Chloride 105 mmol/L (98-107); Estimated CRCL calculation 71 ml/min; Estimated Glomerular Filt Rate > 60; Glucose 83 mg/dL (65-105); Magnesium 1.9 mg/dL (1.6-2.3); Potassium 3.8 mmol/L (3.4-5.0); Sodium 138 mmol/L (137-145)
[2020-08-01] MEDS: PANTOPRAZOLE SODIUM IV 40 MG VIAL IV PUSH ×2 (08:14→20:03)
[2020-08-01] MEDS: SODIUM CHLORIDE 0.9% IV 1,000 ML 75 ML IV CONT (08:14)
[2020-08-01] MEDS: ONDANSETRON INJ 4 MG/2 ML VIAL IV PUSH ×4 (08:14→23:44)
--- NOTE | 2020-08-01 08:17 | PM.IMPN ---
Progress Note: A&P Assessment and Plan (1) Bowel obstruction: Qualifiers: Intestinal obstruction extent: unspecified extent Intestinal obstruction type: unspecified Qualified Code(s): K56.609 - Unspecified intestinal obstruction, unspecified as to partial versus complete obstruction Code(s): K56.609 - Unspecified intestinal obstruction, unspecified as to partial versus complete obstruction Status: Acute Assessment and Plan: Patient brought into the hospital after being found to have an obstructing annular mass in the sigmoid colon which is highly suspicious for colon cancer. This was causing an obstruction so NG tube was placed to intermittent suction. GI preformed sigmoidoscopy which showed diverticulosis, colonic stenosis and internal hemorrhoids. Biopsies taken and pending. Plans to continue conservative management at this time. For now the patient will remain NPO. IV fluid hydration. NG tube as per surgery team. Pain control, antiemetics Surgery and GI were consulted and their input is greatly appreciated Continue monitoring. (2) Colonic mass: Code(s): K63.89 - Other specified diseases of intestine Status: Acute Assessment and Plan: Will defer to surgery and GI. Appreciate their input. CEA testing is normal. (3) GERD (gastroesophageal reflux disease): Code(s): K21.9 - Gastro-esophageal reflux disease without esophagitis Status: Inactive Assessment and Plan: Continue PPI IV b.i.d.. (4) Hypokalemia: Code(s): E87.6 - Hypokalemia Status: Acute Assessment and Plan: Potassium was 3.8 this morning. Continue monitoring. Time Spent With Patient Time with patient: 25 - 35 minutes Subjective Date/time seen: 08/01/20 08:17 Interval history: Date of Service 07/31/20: Feeling well, maybe slightly better. Still not passing gas. Still uncomfortable with NG tube and intermittent abdominal pain/spasming. Needing pain and nausea medication frequently. Denies chest pain, SOB, cough, fever, chills, nausea, leg swelling, calf pain. Review of Systems Review of Systems: All systems reviewed & are unremarkable except as noted in HPI and below Exam Narrative: Exam Narrative: General: 65-year-old woman sitting up in bed with head elevated at 60 degrees, with NG tube in place. Appears comfortable, just fatigued. In no acute distress. Skin: No jaundice or cyanosis. Good skin turgor. Neck: Full range of motion. Supple. Respiratory: Lungs are clear to auscultation bilaterally. No bony chest wall tenderness. Cardiovascular: The heart has a regular rate and rhythm without murmur. No carotid bruits. Lower extremities: No lower extremity edema. Distal pulses are easily palpated. No calf tenderness to palpation. Gastrointestinal: Abd distention, otherwise soft. Tenderness to palpation of lower abdomen. No guarding or rebounding. Hypoactive bowel sounds. Psychiatric: Lucid and oriented. Memory intact. Neurologic: No focal deficits. Speech is clear. No facial drooping. Objective Data Vital Signs Vital Signs: Vital Signs - 24 hr 07/31/20 10:50 07/31/20 11:38 07/31/20 12:59 Temperature 97.8 F 98.0 F Pulse Rate 73 74 79 Respiratory Rate 16 17 22 H Blood Pressure 158/68 H 164/70 H 138/77 Pulse Oximetry 97 97 96 07/31/20 13:09 07/31/20 13:19 07/31/20 14:00 Temperature 97.0 F L Pulse Rate 74 76 77 Respiratory Rate 22 H 24 H 14 Blood Pressure 146/77 H 162/85 H 156/72 H Pulse Oximetry 97 98 100 07/31/20 18:00 07/31/20 22:00 08/01/20 02:00 Temperature 98.1 F 97.1 F L 97.7 F Pulse Rate 80 70 75 Respiratory Rate 20 16 20 Blood Pressure 157/63 H 138/59 L 157/72 H Pulse Oximetry 96 95 98 08/01/20 06:00 Temperature 97.5 F L Pulse Rate 87 R
--- NOTE | 2020-08-01 09:45 | PM.PNGS ---
Progress Note: A&P Assessment and Plan (1) Bowel obstruction: Qualifiers: Intestinal obstruction extent: unspecified extent Intestinal obstruction type: unspecified Qualified Code(s): K56.609 - Unspecified intestinal obstruction, unspecified as to partial versus complete obstruction Code(s): K56.609 - Unspecified intestinal obstruction, unspecified as to partial versus complete obstruction Status: Acute Assessment and Plan: Patient with near complete obstruction at sigmoid colon. Discussed options of proceeding with surgical resection. She has had a little bowel function but abdominal xray does not show any significant improvement. If she begins passing a little more flatus and we can allow the distention to improve, it would make a 1 stage operation more safe and feasible. I encouraged her to get up and ambulate today and we will see if her distention improves throughout the day. If there is no significant improvement, then will plan to proceed with Open sigmoid colectomy, possible ostomy tomorrow. I discussed that the viability and condition of the proximal bowel will determine whether or not I can perform an anastomosis. Pathology is still pending. Not sure these results will change our treatment options however. (2) Colonic mass: Code(s): K63.89 - Other specified diseases of intestine Status: Acute Subjective Subjective Date/Time Seen: 08/01/20 09:45 Interval history: Patient has had a couple BMs but not passing flatus and still feels bloated and nauseated. Exam GI: Inspection: distended GI Palp: Yes Tenderness to palpation present (GI) (lower) and No Guarding due to palpation present (GI) Percussion: Yes tympanic to percussion Objective Data Vital Signs Vital Signs: Vital Signs - 24 hr 07/31/20 10:50 07/31/20 11:38 07/31/20 12:59 Temperature 36.6 C 36.7 C Pulse Rate 73 74 79 Respiratory Rate 16 17 22 H Blood Pressure 158/68 H 164/70 H 138/77 Pulse Oximetry 97 97 96 07/31/20 13:09 07/31/20 13:19 07/31/20 14:00 Temperature 36.1 C L Pulse Rate 74 76 77 Respiratory Rate 22 H 24 H 14 Blood Pressure 146/77 H 162/85 H 156/72 H Pulse Oximetry 97 98 100 07/31/20 18:00 07/31/20 22:00 08/01/20 02:00 Temperature 36.7 C 36.2 C L 36.5 C Pulse Rate 80 70 75 Respiratory Rate 20 16 20 Blood Pressure 157/63 H 138/59 L 157/72 H Pulse Oximetry 96 95 98 08/01/20 06:00 Temperature 36.4 C L Pulse Rate 87 Respiratory Rate 18 Blood Pressure 160/78 H Pulse Oximetry 97 Intake/Output Intake/Output: Intake & Output 07/29/20 07/30/20 07/31/20 08/01/20 23:59 23:59 23:59 23:59 Intake Total 1000 2500 1400 1100 Output Total 550 1185 950 Balance 1000 1950 215 150 Meds/Results Medications: Active Medications Generic Name Dose Route Start Last Admin Trade Name Freq PRN Reason Stop Dose Admin Hydromorphone HCl 0.5 mg 07/29/20 21:00 08/01/20 08:13 Hydromorphone Hcl Inj (*Crx) 1 Mg/Ml Syr IV PUSH 0.5 mg Q4H PRN Administration Pain Rated 7-10 Sodium Chloride 1,000 mls @ 75 mls/hr 07/29/20 21:05 08/01/20 08:14 Normal Saline Iv IV CONT 75 mls/hr .[id number] MATT Administration Acetaminophen 1,000 mg in 100 mls @ 400 mls/hr 07/30/20 11:35 07/31/20 10:09 Ofirmev 1,000 Mg Ivpb IVPB 08/02/20 11:32 Infused Q6H PRN Infusion Pain 1-6 Piperacillin/Tazobactam/Dextrose 3.375 gm in 50 mls @ 100 mls/hr 07/31/20 13:30 08/01/20 06:00 Zosyn 3.375 Gm/D5w 50ml Pm IVPB Infused Q6HR MATT Infusion Nicotine 1 patch 07/30/20 10:32 Nicotine (*Pbkc) 7 Mg Patch TRANSDERM PRN PRN Nicotine cravings Ondansetron HCl 4 mg 07/29/20 21:00 08/01/20 08:14 Ondansetron Inj 4 Mg/2 Ml Vial IV PUSH 4 mg Q4H PRN Administration Nausea Pantoprazole Sodium 40 mg 07/30/20 09:00 08/01/20 08:14 Pantoprazole Sodium Iv 40 Mg Vial IV PUSH 40 mg Q12HR MATT Administration Radiology Results: ITS Impressions Abdo
--- NOTE | 2020-08-01 10:56 | WPDANESPN ---
Anes - Prog Note Post-Op Date/Time: 08/01/20 10:56 Cardiovascular status: normal Respiratory status: normal Airway patency: baseline Mental status: baseline Post-Op hydration status: normal Vital Signs: Last Vital Signs Temp 36.6 C 08/01/20 10:00 Pulse 74 08/01/20 10:00 Resp 14 08/01/20 10:00 BP 137/73 08/01/20 10:00 Pulse Ox 96 08/01/20 10:00 Pain Score (VAS): 04/14 I/O: Intake & Output 07/31/20 08/01/20 08/01/20 23:59 07:59 15:59 Intake Total 200 1100 Output Total 335 950 Balance -135 150 Laboratory Tests 08/01/20 04:51 08/01/20 04:51 08/01/20 08/01/20 04:51 04:51 WBC 12.5 H RBC 4.46 Hgb 12.7 Hct 38.7 MCV 86.8 MCH 28.5 MCHC 32.8 RDW 13.4 Plt Count 302 MPV 10.3 Immature Gran % (Auto) 0.3 Neut % (Auto) 75.1 H Lymph % (Auto) 15.4 L Ritchie % (Auto) 7.4 Eos % (Auto) 1.3 Baso % (Auto) 0.5 Lymph # (Auto) 1.92 Ritchie # (Auto) 0.9 H Eos # (Auto) 0.2 Baso # (Auto) 0.1 Abs Immat Gran (auto) 0.04 H Absolute Neuts (auto) 9.4 H Absolute Nucleated RBC 0.0 Nucleated RBC % 0.0 Sodium 138 Potassium 3.8 Chloride 105 Carbon Dioxide 28 Anion Gap 5 L BUN 11 Creatinine 0.70 Estim Creat Clear Calc 71 Estimated GFR > 60 Glucose 83 Calcium 8.4 Magnesium 1.9 Post-procedural complaints: none Patient Feedback: Patient satisfied with anesthetic care.
[2020-08-01] MEDS: FAT EMULSIONS IV 20% 250 ML 20.83 ML IVPB (16:52)
[2020-08-01] MEDS: AMINO ACIDS 4.25%/D5W/LYTES/CA 2,000 ML 100 ML IV CONT (16:53)
--- NOTE | 2020-08-01 17:08 | WPDGIPROGNO ---
Progress Note: A&P Assessment and Plan (1) Sigmoid stricture: Code(s): K56.699 - Other intestinal obstruction unspecified as to partial versus complete obstruction Status: Acute Assessment and Plan: bx without malignancy, yesterday noted significant edema of sigmoid but after maneuvering scope I was able to reach proximal colon noted also diverticulosis but no obvious diverticulitis plan OR tomorrow if she is not improving (2) Colon, diverticulosis: Code(s): K57.30 - Diverticulosis of large intestine without perforation or abscess without bleeding Status: Acute (3) Nausea and vomiting in adult: Code(s): R11.2 - Nausea with vomiting, unspecified Status: Acute Assessment and Plan: NGT in place, npo status (4) Lower abdominal pain: Code(s): R10.30 - Lower abdominal pain, unspecified Status: Acute Subjective Date/time seen: 08/01/20 17:08 Interval history: sigmoidoscopy yesterday with edema and stricture in sigmoid but no obvious mass, bx reviewed and only showed edema, no malignancy she is passing gas today with minimal stool but still uncomfortable, also reflux symptoms. NGT in place Review of Systems Review of Systems: All systems reviewed & are unremarkable except as noted in HPI and below Exam Const: General: no acute distress, alert and awake HENMT: Other: NGT in place Eyes: Pupils: Equal, round and reactive pupils present Neck: Neck: supple Resp: Auscultation: clear to auscultation bilaterally Cardio: Rate: regular rate GI: Inspection: other (less distended today) GI Palp: Yes Soft to palpation, Yes Tenderness to palpation present (GI) (mild upper abd tenderness), No Guarding due to palpation present (GI) and No Rebound tenderness present Auscultation: Hypoactive bowel sounds present Skin: General skin exam: normal color Neuro: General: moves all extremities and no focal motor deficits Speech: normal speech Motor exam (neuro): Normal motor muscle tone present throughout Extrem: General: no clubbing, cyanosis or edema and no edema Psych: Mental Status: mental status grossly normal Insight: Good insight present (Psych) Judgement: Good judgement present (Psych) Objective Data Vital Signs Vital Signs: Vital Signs - 24 hr 07/31/20 18:00 07/31/20 22:00 08/01/20 02:00 Temperature 98.1 F 97.1 F L 97.7 F Pulse Rate 80 70 75 Respiratory Rate 20 16 20 Blood Pressure 157/63 H 138/59 L 157/72 H Pulse Oximetry 96 95 98 08/01/20 06:00 08/01/20 10:00 08/01/20 14:00 Temperature 97.5 F L 97.8 F 98.6 F Pulse Rate 87 74 84 Respiratory Rate 18 14 14 Blood Pressure 160/78 H 137/73 147/71 H Pulse Oximetry 97 96 97 Intake/Output Intake/Output: Intake & Output 07/29/20 07/30/20 07/31/20 08/01/20 23:59 23:59 23:59 23:59 Intake Total 1000 2500 1400 1150 Output Total 550 1185 950 Balance 1000 1950 215 200 Meds/Results Medications: Active Medications Generic Name Dose Route Start Last Admin Trade Name Freq PRN Reason Stop Dose Admin Chlorhexidine Gluconate 1 applic 08/02/20 09:00 Chlorhexidine Gluconate 4% Kika 120 Ml Btl TOPICAL 08/02/20 09:01 ONCE ONE Hydromorphone HCl 0.5 mg 07/29/20 21:00 08/01/20 16:52 Hydromorphone Hcl Inj (*Crx) 1 Mg/Ml Syr IV PUSH 0.5 mg Q4H PRN Administration Pain Rated 7-10 Sodium Chloride 1,000 mls @ 75 mls/hr 07/29/20 21:05 08/01/20 08:14 Normal Saline Iv IV CONT 75 mls/hr .[id number] MATT Administration Acetaminophen 1,000 mg in 100 mls @ 400 mls/hr 07/30/20 11:35 07/31/20 10:09 Ofirmev 1,000 Mg Ivpb IVPB 08/02/20 11:32 Infused Q6H PRN Infusion Pain 1-6 Piperacillin/Tazobactam/Dextrose 3.375 gm in 50 mls @ 100 mls/hr 07/31/20 13:30 08/01/20 12:50 Zosyn 3.375 Gm/D5w 50ml Pm IVPB Infused Q6HR MATT Infusion Dextrose 1,000 mls @ 50 mls/hr 08/01/20 15:06 Dextrose 10% IV CONT .Q20H PRN if PN is interrupted Amino Acids/Electr
[2020-08-01 18:14] LABS: Glucose Point of Care 120 (65-105)
[2020-08-02] VITALS (18 sets, daily range): BP systolic 89–153; BP diastolic 57–84; PULSE 74–93; RESP 14–26; TEMP 36.1–37; O2SAT 92–100; BMI 25.2
[2020-08-02 00:02] LABS: Glucose Point of Care 128 (65-105)
[2020-08-02] MEDS: ONDANSETRON INJ 4 MG/2 ML VIAL IV PUSH ×3 (03:49→18:54)
--- NOTE | 2020-08-02 05:12 | ECG_ITS ---
Measurements Intervals Dorsey Rate: 86 P: 47 LA: 120 QRS: 25 QRSD: 90 T: 18 QT: 357 QTc: 429 Interpretive Statements SINUS RHYTHM BASELINE ARTIFACT- I, II, III, AVR, AVL, AVF, V1-V6 BORDERLINE ECG Electronically Signed On 08-02-2020 7:36:47 CDT by Abdiaziz Andino D.O.
[2020-08-02 05:50] LABS: Anion Gap 4 mmol/L (8-16); Blood Urea Nitrogen 19 mg/dL (7-17); Calcium 8.6 mg/dL (8.4-10.2); Carbon Dioxide 29 mmol/L (22-30); Chloride 100 mmol/L (98-107); Estimated CRCL calculation 71 ml/min; Estimated Glomerular Filt Rate > 60; Glucose 125 mg/dL (65-105); Phosphorus 3.1 mg/dL (2.5-4.5); Potassium 4.1 mmol/L (3.4-5.0); Sodium 133 mmol/L (137-145)
[2020-08-02 06:17] LABS: Glucose Point of Care 116 (65-105)
[2020-08-02] MEDS: PROMETHAZINE HCL 25 MG/ML AMPUL IM (06:25)
[2020-08-02] MEDS: HYDROmorphone HCL INJ (*CRX) 1 MG/ML SYR 0.5 MG IV PUSH ×2 (08:25→12:35)
[2020-08-02] MEDS: PANTOPRAZOLE SODIUM IV 40 MG VIAL IV PUSH ×2 (08:26→20:02)
--- NOTE | 2020-08-02 08:45 | PM.PNGS ---
Progress Note: A&P Assessment and Plan (1) Sigmoid stricture: Code(s): K56.699 - Other intestinal obstruction unspecified as to partial versus complete obstruction Status: Acute Assessment and Plan: Patient still not showing any signs of improvement. PPN started yesterday in anticipation of it being still a few more days before being able to tolerate enteral feedings. Will plan to proceed with open sigmoid colectomy, possible ostomy today. I discussed that I will have to determine the viability of the proximal colon and may even have to resect more colon if it appears ischemic or near perforated. I discussed the procedure, risks, benefits, and alternatives. Questions answered. (2) Bowel obstruction: Qualifiers: Intestinal obstruction extent: unspecified extent Intestinal obstruction type: unspecified Qualified Code(s): K56.609 - Unspecified intestinal obstruction, unspecified as to partial versus complete obstruction Code(s): K56.609 - Unspecified intestinal obstruction, unspecified as to partial versus complete obstruction Status: Acute Subjective Subjective Date/Time Seen: 08/02/20 08:45 Interval history: Patient still not having much bowel function. Still has cramping pain and dry heaves. Exam GI: Inspection: distended GI Palp: Yes Tenderness to palpation present (GI) (lower) and No Guarding due to palpation present (GI) Percussion: Yes tympanic to percussion Objective Data Vital Signs Vital Signs: Vital Signs - 24 hr 08/01/20 10:00 08/01/20 14:00 08/01/20 18:00 Temperature 36.6 C 37.0 C 36.4 C L Pulse Rate 74 84 84 Respiratory Rate 14 14 16 Blood Pressure 137/73 147/71 H 137/57 L Pulse Oximetry 96 97 98 08/01/20 19:25 08/01/20 23:35 08/02/20 00:45 Temperature 36.6 C 37.0 C 37.0 C Pulse Rate 78 80 Respiratory Rate 18 18 Blood Pressure 146/70 H 152/75 H Pulse Oximetry 95 96 08/02/20 04:20 Temperature 36.4 C L Pulse Rate 81 Respiratory Rate 18 Blood Pressure 153/81 H Pulse Oximetry 97 Intake/Output Intake/Output: Intake & Output 07/30/20 07/31/20 08/01/20 08/02/20 23:59 23:59 23:59 23:59 Intake Total 2500 1400 1650 350 Output Total 550 1185 1150 Balance 1950 215 500 350 Meds/Results Medications: Active Medications Generic Name Dose Route Start Last Admin Trade Name Freq PRN Reason Stop Dose Admin Chlorhexidine Gluconate 1 applic 08/02/20 09:00 Chlorhexidine Gluconate 4% Kika 120 Ml Btl TOPICAL 08/02/20 09:01 ONCE ONE Hydromorphone HCl 0.5 mg 07/29/20 21:00 08/02/20 08:25 Hydromorphone Hcl Inj (*Crx) 1 Mg/Ml Syr IV PUSH 0.5 mg Q4H PRN Administration Pain Rated 7-10 Acetaminophen 1,000 mg in 100 mls @ 400 mls/hr 07/30/20 11:35 07/31/20 10:09 Ofirmev 1,000 Mg Ivpb IVPB 08/02/20 11:32 Infused Q6H PRN Infusion Pain 1-6 Piperacillin/Tazobactam/Dextrose 3.375 gm in 50 mls @ 100 mls/hr 07/31/20 13:30 08/02/20 06:00 Zosyn 3.375 Gm/D5w 50ml Pm IVPB Infused Q6HR MATT Infusion Dextrose 1,000 mls @ 50 mls/hr 08/01/20 15:06 Dextrose 10% IV CONT .Q20H PRN if PN is interrupted Amino Acids/Electrolytes/Dextrose 2,000 mls @ 100 mls/hr 08/01/20 17:00 08/01/20 16:53 Clinimix E 4.25%/5% Solution IV CONT 100 mls/hr .Q20H MATT Administration Protocol Fat Emulsion Intravenous 250 mls @ 20.833 mls/hr 08/01/20 17:00 08/02/20 05:48 Lipids 20% IVPB Infused Q24H MATT Infusion Nicotine 1 patch 07/30/20 10:32 Nicotine (*Pbkc) 7 Mg Patch TRANSDERM PRN PRN Nicotine cravings Ondansetron HCl 4 mg 07/29/20 21:00 08/02/20 03:49 Ondansetron Inj 4 Mg/2 Ml Vial IV PUSH 4 mg Q4H PRN Administration Nausea Pantoprazole Sodium 40 mg 07/30/20 09:00 08/02/20 08:26 Pantoprazole Sodium Iv 40 Mg Vial IV PUSH 40 mg Q12HR MATT Administration Radiology Results: ITS Impressions Abdomen/Pelvis CT 07/29/20 18:38 IMPRESSION: 1. Obstruct
--- NOTE | 2020-08-02 09:05 | WPDGIPROGNO ---
Progress Note: A&P Assessment and Plan (1) Sigmoid stricture: Code(s): K56.699 - Other intestinal obstruction unspecified as to partial versus complete obstruction Status: Acute Assessment and Plan: bx without malignancy, sigmoidoscopy noted significant edema of sigmoid but able to transverse noted also diverticulosis but no obvious diverticulitis she is still symptomatic, surgery today (2) Colon, diverticulosis: Code(s): K57.30 - Diverticulosis of large intestine without perforation or abscess without bleeding Status: Acute (3) Nausea and vomiting in adult: Code(s): R11.2 - Nausea with vomiting, unspecified Status: Acute Assessment and Plan: NGT in place, npo status, symptomatic (4) Lower abdominal pain: Code(s): R10.30 - Lower abdominal pain, unspecified Status: Acute Assessment and Plan: unchanged Subjective Date/time seen: 08/02/20 09:05 Interval history: she is not feeling much better, had a bad night, started on PPN Review of Systems Review of Systems: All systems reviewed & are unremarkable except as noted in HPI and below Exam Const: General: no acute distress, alert and awake HENMT: Other: NGT in place Eyes: Pupils: Equal, round and reactive pupils present Neck: Neck: supple Resp: Auscultation: clear to auscultation bilaterally Cardio: Rate: regular rate GI: Inspection: distended and other (less distended today) GI Palp: Yes Soft to palpation, Yes Tenderness to palpation present (GI) (mild upper abd tenderness), No Guarding due to palpation present (GI) and No Rebound tenderness present Auscultation: Hypoactive bowel sounds present Skin: General skin exam: normal color Neuro: General: moves all extremities and no focal motor deficits Speech: normal speech Motor exam (neuro): Normal motor muscle tone present throughout Extrem: General: no clubbing, cyanosis or edema and no edema Psych: Mental Status: mental status grossly normal Insight: Good insight present (Psych) Judgement: Good judgement present (Psych) Objective Data Vital Signs Vital Signs: Vital Signs - 24 hr 08/01/20 10:00 08/01/20 14:00 08/01/20 18:00 Temperature 97.8 F 98.6 F 97.5 F L Pulse Rate 74 84 84 Respiratory Rate 14 14 16 Blood Pressure 137/73 147/71 H 137/57 L Pulse Oximetry 96 97 98 08/01/20 19:25 08/01/20 23:35 08/02/20 00:45 Temperature 97.9 F 98.6 F 98.6 F Pulse Rate 78 80 Respiratory Rate 18 18 Blood Pressure 146/70 H 152/75 H Pulse Oximetry 95 96 08/02/20 04:20 Temperature 97.5 F L Pulse Rate 81 Respiratory Rate 18 Blood Pressure 153/81 H Pulse Oximetry 97 Intake/Output Intake/Output: Intake & Output 07/30/20 07/31/20 08/01/20 08/02/20 23:59 23:59 23:59 23:59 Intake Total 2500 1400 1650 350 Output Total 550 1185 1150 Balance 1950 215 500 350 Meds/Results Medications: Active Medications Generic Name Dose Route Start Last Admin Trade Name Freq PRN Reason Stop Dose Admin Hydromorphone HCl 0.5 mg 07/29/20 21:00 08/02/20 08:25 Hydromorphone Hcl Inj (*Crx) 1 Mg/Ml Syr IV PUSH 0.5 mg Q4H PRN Administration Pain Rated 7-10 Acetaminophen 1,000 mg in 100 mls @ 400 mls/hr 07/30/20 11:35 07/31/20 10:09 Ofirmev 1,000 Mg Ivpb IVPB 08/02/20 11:32 Infused Q6H PRN Infusion Pain 1-6 Piperacillin/Tazobactam/Dextrose 3.375 gm in 50 mls @ 100 mls/hr 07/31/20 13:30 08/02/20 06:00 Zosyn 3.375 Gm/D5w 50ml Pm IVPB Infused Q6HR MATT Infusion Dextrose 1,000 mls @ 50 mls/hr 08/01/20 15:06 Dextrose 10% IV CONT .Q20H PRN if PN is interrupted Amino Acids/Electrolytes/Dextrose 2,000 mls @ 100 mls/hr 08/01/20 17:00 08/01/20 16:53 Clinimix E 4.25%/5% Solution IV CONT 100 mls/hr .Q20H MATT Administration Protocol Fat Emulsion Intravenous 250 mls @ 20.833 mls/hr 08/01/20 17:00 08/02/20 05:48 Lipids 20% IVPB Infused Q24H MATT Infusion Nicotine 1
[2020-08-02] MEDS: CHLORHEXIDINE GLUCONATE 4% SOL 120 ML BTL 1 APPLIC TOPICAL ×2 (10:00)
[2020-08-02 11:59] LABS: Glucose Point of Care 117 (65-105)
--- NOTE | 2020-08-02 12:04 | WPDANESEPPF ---
Anes - Initial Pre Proc Eval Procedure: Operation Date: 07/31/20 13:00 Proposed Procedures p Colonoscopy - Sonny Mauro MD Operation Date: 08/02/20 14:00 Proposed Procedures p Open Sigmoid Colectomy Possible Ostomy - Antelmo Harper DO <Deyvi Dimas MD - Last Filed: 08/03/20 16:17> Date/Time: 08/02/20 12:04 <Deyvi Dimas MD - Last Filed: 08/03/20 16:17> Surgeon: Graciela Lucas PA-C <Deyvi Dimas MD - Last Filed: 08/03/20 16:17> Pre Op Diagnosis: Obstructing colon mass, sigmoid stricture <Deyvi Dimas MD - Last Filed: 08/03/20 16:17> Patient Data Age: 65 Gender: F Height: 1.73 m Weight: 75.2 kg <Deyvi Dimas MD - Last Filed: 08/03/20 16:17> Last Vital Signs Temp 36.6 C 08/02/20 11:40 Pulse 76 08/02/20 11:40 Resp 16 08/02/20 11:40 BP 127/64 08/02/20 11:40 Pulse Ox 96 08/02/20 11:40 <Deyvi Dimas MD - Last Filed: 08/03/20 16:17> Allergies Allergy/AdvReac Type Severity Reaction Status Date / Time No Known Allergies Allergy Verified 08/02/20 13:43 <Deyvi Dimas MD - Last Filed: 08/03/20 16:17> Home Medications Medication Instructions Recorded Confirmed Type omeprazole 10 mg PO DAILY 07/29/20 07/31/20 History <Deyvi Dimas MD - Last Filed: 08/03/20 16:17> Laboratory Tests 08/01/20 08/01/20 08/01/20 17:08 18:10 23:59 Sodium Potassium Chloride Carbon Dioxide Anion Gap BUN Creatinine Estim Creat Clear Calc Estimated GFR Glucose POC Capillary Glucose 120 mg/dl H mg/dl 128 mg/dl H mg/dl (65-105) (65-105) Calcium Phosphorus Blood Type O Positive Antibody Screen Negative 08/02/20 08/02/20 08/02/20 05:26 05:29 11:52 Sodium 133 mmol/L L mmol/L (137-145) Potassium 4.1 mmol/L mmol/L (3.4-5.0) Chloride 100 mmol/L mmol/L (98-107) Carbon Dioxide 29 mmol/L mmol/L (22-30) Anion Gap 4 mmol/L L mmol/L (8-16) BUN 19 mg/dL H mg/dL (7-17) Creatinine 0.70 mg/dL mg/dL (0.7-1.0) Estim Creat Clear Calc 71 ml/min ml/min Estimated GFR > 60 (59 - ) Glucose 125 mg/dL H mg/dL (65-105) POC Capillary Glucose 116 mg/dl H mg/dl 117 mg/dl H mg/dl (65-105) (65-105) Calcium 8.6 mg/dL mg/dL (8.4-10.2) Phosphorus 3.1 mg/dL mg/dL (2.5-4.5) Blood Type Antibody Screen <Deyvi Dimas MD - Last Filed: 08/03/20 16:17> Patient hx anesthesia problems: none <Deyvi Dimas MD - Last Filed: 08/03/20 16:17> Family hx anesthesia problems: none <Deyvi Dimas MD - Last Filed: 08/03/20 16:17> [facility] Past Medical History Medical History: Medical History (Updated 08/01/20 @ 17:10 by Sonny Mauro MD) Colon, diverticulosis GERD (gastroesophageal reflux disease) Lower abdominal pain Nausea and vomiting in adult Sigmoid stricture <Deyvi Dimas MD - Last Filed: 08/03/20 16:17> Surgical History Surgical History: Surgical History History of total abdominal hysterectomy and bilateral salpingo-oophorectomy with incidental appendectomy <Deyvi Dimas MD - Last Filed: 08/03/20 16:17> Family History Family History: Family History Father Acute myocardial infarction Chronic obstructive pulmonary disease Congestive heart failure Hypertension Mother Hypertension Sibling Esophageal cancer Sibling Breast cancer <Deyvi Dimas MD - Last Filed: 08/03/20 16:17> Social History Social History: Social History (Updated 07/30/20 @ 10:33 by Graciela Lucas P
--- NOTE | 2020-08-02 12:22 | PCWOUND ---
WOCN NOTE Received order to jonathan [facility] for possible colostomy placement. marked abdomen, covered 'X with transparent dressing.
--- NOTE | 2020-08-02 13:26 | PC.NURSE ---
To OR via bed with OR staff.
[2020-08-02] MEDS: LACTATED RINGERS 1,000 ML 30 ML IV CONT ×2 (13:30→17:38)
--- NOTE | 2020-08-02 13:39 | PM.IMPN ---
Progress Note: A&P Assessment and Plan (1) Bowel obstruction: Qualifiers: Intestinal obstruction extent: unspecified extent Intestinal obstruction type: unspecified Qualified Code(s): K56.609 - Unspecified intestinal obstruction, unspecified as to partial versus complete obstruction Code(s): K56.609 - Unspecified intestinal obstruction, unspecified as to partial versus complete obstruction Status: Acute Assessment and Plan: Patient brought into the hospital after being found to have an obstructing annular mass in the sigmoid colon which is highly suspicious for colon cancer. This was causing an obstruction so NG tube was placed to intermittent suction. GI preformed sigmoidoscopy which showed diverticulosis, colonic stenosis and internal hemorrhoids. Biopsies taken and pending. Dr. Petersen Surgery evaluated the patient and is going to perform surgery this afternoon due to continued symptoms without much relief. Pain control, antiemetics IV nutrition has been started by Surgery Surgery and GI were consulted and their input is greatly appreciated Continue monitoring. (2) Colonic mass: Code(s): K63.89 - Other specified diseases of intestine Status: Acute Assessment and Plan: Will defer to surgery and GI. Appreciate their input. CEA testing is normal. (3) GERD (gastroesophageal reflux disease): Code(s): K21.9 - Gastro-esophageal reflux disease without esophagitis Status: Inactive Assessment and Plan: Continue PPI IV b.i.d.. (4) Hypokalemia: Code(s): E87.6 - Hypokalemia Status: Acute Assessment and Plan: Potassium was 4.1 this morning. Continue monitoring. Time Spent With Patient Time with patient: 25 - 35 minutes Subjective Date/time seen: 08/02/20 13:39 Interval history: Date of Service 08/02/20: Patient is not feeling much better today. She was up retching all night. Had a very small pasty bowel movement this morning, but otherwise not passing much gas. She denies any fevers, chills, leg swelling, calf pain, chest pain, shortness of breath or any other symptoms this time. Review of Systems Review of Systems: All systems reviewed & are unremarkable except as noted in HPI and below Exam Narrative: Exam Narrative: General: 65-year-old woman sitting up in bed with head elevated at 60 degrees, with NG tube in place. Appears fatigued. In no acute distress. Skin: No jaundice or cyanosis. Good skin turgor. Neck: Full range of motion. Supple. Respiratory: Lungs are clear to auscultation bilaterally. No bony chest wall tenderness. Cardiovascular: The heart has a regular rate and rhythm without murmur. No carotid bruits. Lower extremities: No lower extremity edema. Distal pulses are easily palpated. No calf tenderness to palpation. Gastrointestinal: Abd distention, otherwise soft. Tenderness to palpation of lower abdomen. No guarding or rebounding. Hypoactive bowel sounds. Psychiatric: Lucid and oriented. Memory intact. Neurologic: No focal deficits. Speech is clear. No facial drooping. Objective Data Vital Signs Vital Signs: Vital Signs - 24 hr 08/01/20 14:00 08/01/20 18:00 08/01/20 19:25 Temperature 98.6 F 97.5 F L 97.9 F Pulse Rate 84 84 78 Respiratory Rate 14 16 18 Blood Pressure 147/71 H 137/57 L 146/70 H Pulse Oximetry 97 98 95 08/01/20 23:35 08/02/20 00:45 08/02/20 04:20 Temperature 98.6 F 98.6 F 97.5 F L Pulse Rate 80 81 Respiratory Rate 18 18 Blood Pressure 152/75 H 153/81 H Pulse Oximetry 96 97 08/02/20 08:10 08/02/20 10:00 08/02/20 11:40 Temperature 97.5 F L 97.1 F L 97.8 F Pulse Rate 79 74 76 Respiratory Rate 18 18 16 Blood Pressure 153/84 H 126/67 127/64 Pulse Oximetry 97 96 96 Intake/Output I
--- NOTE | 2020-08-02 13:42 | WPDANESEPPF ---
Anes - Initial Pre Proc Eval Procedure: Operation Date: 08/02/20 14:00 Proposed Procedures p Open Sigmoid Colectomy Possible Ostomy - Antelmo Harper DO Date/Time: 08/02/20 13:42 Surgeon: Graciela Lucas PA-C Pre Op Diagnosis: Obstructing colon mass, constipation Patient Data Age: 65 Gender: F Height: 1.73 m Weight: 75.2 kg Last Vital Signs Temp 36.6 C 08/02/20 11:40 Pulse 76 08/02/20 11:40 Resp 16 08/02/20 11:40 BP 127/64 08/02/20 11:40 Pulse Ox 96 08/02/20 11:40 Allergies Allergy/AdvReac Type Severity Reaction Status Date / Time No Known Allergies Allergy Verified 07/31/20 11:37 Home Medications Medication Instructions Recorded Confirmed Type omeprazole 10 mg PO DAILY 07/29/20 07/31/20 History Laboratory Tests 08/01/20 08/01/20 08/01/20 17:08 18:10 23:59 Sodium Potassium Chloride Carbon Dioxide Anion Gap BUN Creatinine Estim Creat Clear Calc Estimated GFR Glucose POC Capillary Glucose 120 mg/dl H mg/dl 128 mg/dl H mg/dl (65-105) (65-105) Calcium Phosphorus Blood Type O Positive Antibody Screen Negative 08/02/20 08/02/20 08/02/20 05:26 05:29 11:52 Sodium 133 mmol/L L mmol/L (137-145) Potassium 4.1 mmol/L mmol/L (3.4-5.0) Chloride 100 mmol/L mmol/L (98-107) Carbon Dioxide 29 mmol/L mmol/L (22-30) Anion Gap 4 mmol/L L mmol/L (8-16) BUN 19 mg/dL H mg/dL (7-17) Creatinine 0.70 mg/dL mg/dL (0.7-1.0) Estim Creat Clear Calc 71 ml/min ml/min Estimated GFR > 60 (59 - ) Glucose 125 mg/dL H mg/dL (65-105) POC Capillary Glucose 116 mg/dl H mg/dl 117 mg/dl H mg/dl (65-105) (65-105) Calcium 8.6 mg/dL mg/dL (8.4-10.2) Phosphorus 3.1 mg/dL mg/dL (2.5-4.5) Blood Type Antibody Screen Patient hx anesthesia problems: none Family hx anesthesia problems: none [facility] Past Medical History Medical History (Updated 08/01/20 @ 17:10 by Sonny Mauro MD) Colon, diverticulosis GERD (gastroesophageal reflux disease) Lower abdominal pain Nausea and vomiting in adult Sigmoid stricture Surgical History Surgical History History of total abdominal hysterectomy and bilateral salpingo-oophorectomy with incidental appendectomy Family History Family History Father Acute myocardial infarction Chronic obstructive pulmonary disease Congestive heart failure Hypertension Mother Hypertension Sibling Esophageal cancer Sibling Breast cancer Social History Social History (Updated 07/30/20 @ 10:33 by Graciela Lucas PA-C) Social History: Wishes to be a full code. Years smoked: 30 Smoking status: Current every day smoker Tobacco type: cigarettes Alcohol intake: never Alcohol use details: Rare alcohol use Substance use: never Living arrangements: with family Additional living arrangements comments: Lives with her sister. 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 Gender identity (if verbalized by the patient): Female Spiritual care concerns: No Anes - Eval Final PreProcedure Day of Procedure 08/02/20 13:42 Informed Consent: The patient's anesthetic plan and its attendant risks and benefits were discussed with the patient/family/POA. Questions were solicited and answers provided to the satisfaction of the patient/family/POA.
--- NOTE | 2020-08-02 17:39 | PM.PROC ---
Procedure Note - Detailed Date of procedure: 08/02/20 Pre-op diagnosis: Obstructing colon mass, sigmoid stricture Post-op diagnosis: same Procedure performed: 1. Sigmoid colectomy with end to side colorectal anastomosis 2. Ileal resection with [id number] ileal anastomosis 3. Massive adhesiolysis requiring about 90 minutes which was greater than 50% of the total operating time Description of procedure: Procedure as well as risks, benefits, and alternatives were discussed with the patient. Written consent was obtained and placed in chart prior to procedure. Patient was brought back to surgical suite. She was placed supine on operating table. Time-out was done to confirm patient and procedure. She was then intubated by the Anesthesia Department. Her abdomen was prepped and draped in sterile fashion using chlorhexidine prep, she was placed in modified lithotomy position and her perirectal rectal region was prepped draped in sterile fashion using Betadine prep. An 8 in vertical midline incision was made from the suprapubic region to up just superior to the umbilicus using a 10 blade scalpel. Electrocautery was used for hemostasis and for dissection down through Bert's fascia. The linea alba was identified and this was then incised using electrocautery. The fascia was lifted anteriorly and the peritoneum in the upper abdomen was entered using electrocautery. From about the umbilicus down further inferior, there was significant adhesions up to the midline. These adhesions had to be carefully bluntly taken down with finger dissection to the point where I could extend the fascial incision throughout the length of the skin incision. Once I was able to open this incision further I was able to visualize more of what was scarred up to the abdominal wall. There was some omentum adherent to the abdominal wall and then there was about a 3 ft segment of ileum that wound back and forth along the abdominal wall and was densely adherent together. These adhesions were carefully taken down and there was 1 small enterotomy noted among this segment that was related to the adhesions. This enterotomy was closed using a 3 0 silk [id number] suture. The remaining small bowel was carefully inspected and there were dense adhesions throughout most of the ileum. The more proximal jejunum appeared relatively free of adhesions. The small bowel around the ileum all appeared dilated and partially obstructed. Once I was able to identify beyond the area of adhesions I was able to trace the terminal ileum to the cecum. After extensive adhesiolysis, I was able to identify 1 area of the ileum that had more adhesions back and forth on itself and there were also several serosal tears from the adhesiolysis. I chose to resect this segment of the small bowel. A window was created in the mesentery of the ileum just proximal and distal to this. A BRUCE 75 mm blue load stapler was then advanced across the bowel at each point and and the stapler was fired. The mesentery was then taken down using LigaSure bipolar cautery. The specimen was removed and sent to the lab for pathology. The 2 ends of the ileum came together in a [id number] fashion and this was about 10-12 inches proximal to the ileocecal valve. Enterotomies were made on the anti mesenteric end of the bowel at the staple line and the BRUCE 75 mm blue load stapler was advanced through each enterotomy in the bowel was clamped together in a [id number] fashion. The stapler was fired to create our anastomosis. A TLC 60 mm stapler was then advanced across the enterotomy to close the enterotomy and this was fired. The anastomosis was palpated and inspected and appeared healthy, patent, and viable. The anterior surface of the staple line and the apex of the staple line was reinforced using 3 0 silk seromuscular imbricating sutures. Then inspected the remainder of the small bowel and no further adhesions or abnormalities were noted. The mesente
[2020-08-02] MEDS: fentaNYL CITRATE INJ (*CRX) 100 MCG/2 ML VIAL 25 MCG IV PUSH ×8 (17:51→18:48)
[2020-08-02 18:04] LABS: Glucose Point of Care 147 (65-105)
[2020-08-02 19:57] LABS: Triglycerides 119 mg/dL (<150)
[2020-08-02] MEDS: HYDROmorphone HCL INJ (*CRX) 1 MG/ML SYR IV PUSH ×3 (20:01→23:58)
[2020-08-02] MEDS: AMINO ACIDS 4.25%/D5W/LYTES/CA 2,000 ML 100 ML IV CONT (20:01)
[2020-08-02] MEDS: FAT EMULSIONS IV 20% 250 ML 20.83 ML IVPB (20:02)
[2020-08-03] VITALS (9 sets, daily range): BP systolic 88–148; BP diastolic 52–72; PULSE 78–106; RESP 14–18; TEMP 36.1–36.9; O2SAT 94–96
[2020-08-03 00:43] LABS: Glucose Point of Care 162 (65-105)
[2020-08-03] MEDS: HYDROmorphone HCL INJ (*CRX) 1 MG/ML SYR IV PUSH ×4 (02:06→23:28)
[2020-08-03 05:42] LABS: Hematocrit 40.3 % (37.0-47.0); Hemoglobin 13.4 g/dL (12.0-15.0); Mean Corpuscular HGB Conc 33.3 g/dl (32-36); Mean Corpuscular Volume 84.3 fl (80-100); Mean Platelet Volume 10.4 fl (7.4-10.4); Platelet Count Result 364 k/mm3 (150-375); Red Blood Count 4.78 M/mm3 (4.2-5.4); Red Cell Distribution Width 13.3 % (11.5-14.5); White Blood Count 14.4 K/mm3 (4.5-10.0)
[2020-08-03 05:54] LABS: Alanine Aminotransferase 15 U/L (4-35); Albumin Level 2.8 g/dL (3.5-5.1); Alkaline Phosphatase 38 U/L (38-126); Anion Gap 2 mmol/L (8-16); Aspartate Amino Transferase 24 U/L (14-36); Bilirubin,Total 0.3 mg/dL (0.2-1.3); Blood Urea Nitrogen 23 mg/dL (7-17); Calcium 8.1 mg/dL (8.4-10.2); Carbon Dioxide 32 mmol/L (22-30); Chloride 97 mmol/L (98-107); Estimated CRCL calculation 71 ml/min; Estimated Glomerular Filt Rate > 60; Glucose 126 mg/dL (65-105); Magnesium 1.9 mg/dL (1.6-2.3); Phosphorus 4.9 mg/dL (2.5-4.5); Potassium 4.9 mmol/L (3.4-5.0); Sodium 131 mmol/L (137-145)
[2020-08-03 06:59] LABS: Glucose Point of Care 147 (65-105)
--- NOTE | 2020-08-03 08:04 | PM.PNGS ---
Progress Note: A&P Assessment and Plan (1) Sigmoid stricture: Code(s): K56.699 - Other intestinal obstruction unspecified as to partial versus complete obstruction Status: Acute Assessment and Plan: encourage OOB/IS, cont NG decompression, bowel rest for now, cont PPN, dc [place]ola Subjective Subjective Date/Time Seen: 08/03/20 08:04 feels good, some incisional soreness, has been OOB and ambulating c assistance, +flatus Review of Systems Review of Systems: All systems reviewed & are unremarkable except as noted in HPI and below Exam Const: General: cooperative, comfortable and no acute distress Nutritional Appearance: average body habitus Orientation/consciousness: patient oriented x3 Resp: Effort & Inspection: normal respiratory effort Auscultation: clear to auscultation bilaterally Cardio: Rate: regular rate Rhythm: regular rhythm GI: Inspection: normal to inspection, distended and incision GI Palp: Yes Soft to palpation and Yes Tenderness to palpation present (GI) Other: soft, mod dist, caleb TTP, incision C/D/I Objective Data Vital Signs Vital Signs: Vital Signs - 24 hr 08/02/20 08:10 08/02/20 10:00 08/02/20 11:40 Temperature 36.4 C L 36.2 C L 36.6 C Pulse Rate 79 74 76 Respiratory Rate 18 18 16 Blood Pressure 153/84 H 126/67 127/64 Pulse Oximetry 97 96 96 08/02/20 13:44 08/02/20 17:38 08/02/20 17:50 Temperature 36.8 C 36.4 C Pulse Rate 77 87 87 Respiratory Rate 26 H 23 H Blood Pressure 119/65 89/60 L 112/60 Pulse Oximetry 95 97 100 08/02/20 18:05 08/02/20 18:20 08/02/20 18:35 Temperature Pulse Rate 84 84 81 Respiratory Rate 21 H 21 H 20 Blood Pressure 117/66 132/57 L 130/62 Pulse Oximetry 92 96 100 08/02/20 18:50 08/02/20 19:10 08/02/20 19:42 Temperature 36.1 C L 36.6 C Pulse Rate 82 84 93 Respiratory Rate 16 20 14 Blood Pressure 139/60 143/66 H 125/78 Pulse Oximetry 99 99 97 08/02/20 20:10 08/02/20 20:42 08/02/20 20:48 Temperature 36.6 C 36.6 C Pulse Rate 90 90 Respiratory Rate 14 14 Blood Pressure 130/74 130/74 Pulse Oximetry 97 97 97 08/02/20 22:56 08/03/20 02:11 08/03/20 04:46 Temperature 36.6 C 36.7 C 36.7 C Pulse Rate 78 93 78 Respiratory Rate 14 14 14 Blood Pressure 150/68 H 141/72 H 148/72 H Pulse Oximetry 96 96 94 Intake/Output Intake/Output: Intake & Output 07/31/20 08/01/20 08/02/20 08/03/20 23:59 23:59 23:59 23:59 Intake Total 1400 1650 2750 300 Output Total 1185 1150 230 695 Balance 757 475 8841 -395 Meds/Results Medications: Active Medications Generic Name Dose Route Start Last Admin Trade Name Freq PRN Reason Stop Dose Admin Enoxaparin Sodium 40 mg 08/03/20 09:00 Enoxaparin 40 Mg/0.4 Ml Syringe SUB-Q DAILY MATT Hydromorphone HCl 1 mg 08/02/20 18:57 08/03/20 04:44 Hydromorphone Hcl Inj (*Crx) 1 Mg/Ml Syr IV PUSH 1 mg Q2H PRN Administration Pain Rated 7-10 Hydromorphone HCl 0.5 mg 08/02/20 18:57 Hydromorphone Hcl Inj (*Crx) 1 Mg/Ml Syr IV PUSH Q2H PRN Pain Rated 4-6 Piperacillin/Tazobactam/Dextrose 3.375 gm in 50 mls @ 100 mls/hr 07/31/20 13:30 08/03/20 06:46 Zosyn 3.375 Gm/D5w 50ml Pm IVPB Infused Q6HR MATT Infusion Dextrose 1,000 mls @ 50 mls/hr 08/01/20 15:06 Dextrose 10% IV CONT .Q20H PRN if PN is interrupted Amino Acids/Electrolytes/Dextrose 2,000 mls @ 100 mls/hr 08/01/20 17:00 08/02/20 20:01 Clinimix E 4.25%/5% Solution IV CONT 100 mls/hr .Q20H MATT Administration Protocol Fat Emulsion Intravenous 250 mls @ 20.833 mls/hr 08/01/20 17:00 08/02/20 20:02 Lipids 20% IVPB 20.83 mls/hr Q24H MATT Administration Acetaminophen 1,000 mg in 100 mls @ 400 mls/hr 08/02/20 18:00 08/03/20 07:03 Ofirmev 1,000 Mg Ivpb IVPB 08/03/20 18:01 Infused Q6HR MATT Infusion Nicotine 1 patch 07/30/20 10:32 Nicotine (*Pbkc) 7 Mg Patch TRANSDERM PRN PRN Nicotine cravings Ondansetron HCl 4 mg 07/29/20 21:00
[2020-08-03] MEDS: PANTOPRAZOLE SODIUM IV 40 MG VIAL IV PUSH ×2 (08:22→20:32)
[2020-08-03] MEDS: ENOXAPARIN 40 MG/0.4 ML SYRINGE SUB-Q (08:22)
--- NOTE | 2020-08-03 09:42 | WPDANESPN ---
Anes - Prog Note Post-Op Date/Time: 08/03/20 09:42 Cardiovascular status: normal Respiratory status: normal Airway patency: baseline Mental status: baseline Post-Op hydration status: normal Vital Signs: Last Vital Signs Temp 36.7 C 08/03/20 04:46 Pulse 78 08/03/20 04:46 Resp 14 08/03/20 04:46 BP 148/72 H 08/03/20 04:46 Pulse Ox 94 08/03/20 04:46 Pain Score (VAS): 0/10. Patient resting in bed at time of assessment, appears comfortable. Pain controlled with PRN meds per patient. I/O: Intake & Output 08/02/20 08/03/20 08/03/20 23:59 07:59 15:59 Intake Total 350 300 Output Total 130 695 Balance 220 -395 Laboratory Tests 08/03/20 05:18 08/03/20 05:18 08/02/20 08/02/20 08/02/20 11:52 18:01 19:40 WBC RBC Hgb Hct MCV MCH MCHC RDW Plt Count MPV Sodium Potassium Chloride Carbon Dioxide Anion Gap BUN Creatinine Estim Creat Clear Calc Estimated GFR Glucose POC Capillary Glucose 117 H 147 H Calcium Phosphorus Magnesium Total Bilirubin AST ALT Alkaline Phosphatase Total Protein Albumin Triglycerides 119 08/03/20 08/03/20 08/03/20 00:37 05:18 05:18 WBC 14.4 H RBC 4.78 Hgb 13.4 Hct 40.3 MCV 84.3 MCH 28.0 MCHC 33.3 RDW 13.3 Plt Count 364 MPV 10.4 Sodium 131 L Potassium 4.9 Chloride 97 L Carbon Dioxide 32 H Anion Gap 2 L BUN 23 H Creatinine 0.70 Estim Creat Clear Calc 71 Estimated GFR > 60 Glucose 126 H POC Capillary Glucose 162 H Calcium 8.1 L Phosphorus 4.9 H Magnesium 1.9 Total Bilirubin 0.3 AST 24 ALT 15 Alkaline Phosphatase 38 Total Protein 5.0 L Albumin 2.8 L Triglycerides 08/03/20 06:50 WBC RBC Hgb Hct MCV MCH MCHC RDW Plt Count MPV Sodium Potassium Chloride Carbon Dioxide Anion Gap BUN Creatinine Estim Creat Clear Calc Estimated GFR Glucose POC Capillary Glucose 147 H Calcium Phosphorus Magnesium Total Bilirubin AST ALT Alkaline Phosphatase Total Protein Albumin Triglycerides Post-procedural complaints: none Patient Feedback: Patient satisfied with anesthetic care.
--- NOTE | 2020-08-03 09:51 | PM.IMPN ---
Progress Note: A&P Assessment and Plan (1) Bowel obstruction: Qualifiers: Intestinal obstruction extent: unspecified extent Intestinal obstruction type: unspecified Qualified Code(s): K56.609 - Unspecified intestinal obstruction, unspecified as to partial versus complete obstruction Code(s): K56.609 - Unspecified intestinal obstruction, unspecified as to partial versus complete obstruction Status: Acute Assessment and Plan: Patient brought into the hospital after being found to have an obstructing annular mass in the sigmoid colon which is highly suspicious for colon cancer. This was causing an obstruction so NG tube was placed to intermittent suction. GI preformed sigmoidoscopy which showed diverticulosis, colonic stenosis and internal hemorrhoids. Biopsies taken and pending. Dr. Petersen Surgery took patient to surgery and performed Sigmoid colectomy with end to side colorectal anastomosis. Ileal resection with [id number] ileal anastomosis. Massive adhesiolysis requiring about 90 minutes which was greater than 50% of the total operating time. Continue Pain control with IV medications and antiemetics PRN IV nutrition has been started by Surgery Surgery and GI were consulted and their input is greatly appreciated Continue monitoring. (2) Colonic mass: Code(s): K63.89 - Other specified diseases of intestine Status: Acute Assessment and Plan: Biopsies still pending. Will defer to surgery and GI. Appreciate their input. CEA testing is normal. (3) GERD (gastroesophageal reflux disease): Code(s): K21.9 - Gastro-esophageal reflux disease without esophagitis Status: Inactive Assessment and Plan: Continue PPI IV b.i.d.. (4) Hypokalemia: Code(s): E87.6 - Hypokalemia Status: Acute Assessment and Plan: Potassium was 4.9 this morning. Continue monitoring. Time Spent With Patient Time with patient: 25 - 35 minutes Subjective Date/time seen: 08/03/20 09:51 Interval history: Date of Service 08/03/20: Patient is feeling much better today after her surgery. She is passing gas and had a bowel movement this morning. She has not had any nausea this morning or vomiting. Her mouth is very dry since she is still NPO. Abdominal pain is just associated with surgery. She denies any fevers, chills, leg swelling, calf pain, chest pain, shortness of breath or any other symptoms this time. Review of Systems Review of Systems: All systems reviewed & are unremarkable except as noted in HPI and below Exam Narrative: Exam Narrative: General: 65-year-old woman sitting up in the chair with NG tube in place. Appears to have more energy today but still weak and fatigued. In no acute distress. Skin: No jaundice or cyanosis. Good skin turgor. Neck: Full range of motion. Supple. Respiratory: Lungs are clear to auscultation bilaterally. No wheezing, rales or rhonchi. No bony chest wall tenderness. Cardiovascular: The heart has a regular rate and rhythm without murmur. Lower extremities: No lower extremity edema. Distal pulses are easily palpated. No calf tenderness to palpation. Gastrointestinal: Surgical dressing in place to midline abdomen. Dressing not removed will defer to surgery team. Slight Tenderness to palpation of abdomen. No guarding or rebounding. Hypoactive bowel sounds. Psychiatric: Lucid and oriented. Memory intact. Neurologic: No focal deficits. Speech is clear. No facial drooping. Objective Data Vital Signs Vital Signs: Vital Signs - 24 hr 08/02/20 10:00 08/02/20 11:40 08/02/20 13:44 Temperature 97.1 F L 97.8 F 98.3 F Pulse Rate 74 76 77 Respiratory Rate 18 16 Blood Pressure 126/67 127/64 119/65 Pulse Oximetry 96 96 95 08/02/20 17:38
--- NOTE | 2020-08-03 10:06 | PCOTNOTE ---
Attempted OT evaluation, per RN patient has low BP at this time and to hold therapy for morning, will follow and attempt at later time.
[2020-08-03] MEDS: SODIUM CHLORIDE 0.9% IV 500 ML 999 ML IV CONT (10:31)
[2020-08-03 11:53] LABS: Glucose Point of Care 124 (65-105)
[2020-08-03] MEDS: ONDANSETRON INJ 4 MG/2 ML VIAL IV PUSH (16:40)
[2020-08-03 16:42] LABS: Anion Gap 2 mmol/L (8-16); Blood Urea Nitrogen 26 mg/dL (7-17); Calcium 8.8 mg/dL (8.4-10.2); Carbon Dioxide 34 mmol/L (22-30); Chloride 96 mmol/L (98-107); Estimated CRCL calculation 62 ml/min; Estimated Glomerular Filt Rate > 60; Glucose 113 mg/dL (65-105); Sodium 132 mmol/L (137-145)
[2020-08-03] MEDS: FAT EMULSIONS IV 20% 250 ML 20.8 ML IVPB (16:56)
[2020-08-03] MEDS: AMINO ACIDS 4.25%/D5W/LYTES/CA 2,000 ML 100 ML IV CONT (16:56)
[2020-08-03 18:35] LABS: Glucose Point of Care 111 (65-105)
[2020-08-03] MEDS: HYDROmorphone HCL INJ (*CRX) 1 MG/ML SYR 0.5 MG IV PUSH (20:32)
[2020-08-03 23:46] LABS: Glucose Point of Care 91 (65-105)
[2020-08-04] VITALS (7 sets, daily range): BP systolic 103–115; BP diastolic 57–72; PULSE 87–106; RESP 16; TEMP 36–37.1; O2SAT 95–100
[2020-08-04] MEDS: HYDROmorphone HCL INJ (*CRX) 1 MG/ML SYR IV PUSH ×5 (05:41→21:57)
[2020-08-04 05:56] LABS: Anion Gap 3 mmol/L (8-16); Blood Urea Nitrogen 21 mg/dL (7-17); Calcium 8.4 mg/dL (8.4-10.2); Carbon Dioxide 33 mmol/L (22-30); Chloride 96 mmol/L (98-107); Estimated CRCL calculation 62 ml/min; Estimated Glomerular Filt Rate > 60; Glucose 107 mg/dL (65-105); Phosphorus 3.2 mg/dL (2.5-4.5); Potassium 4.2 mmol/L (3.4-5.0); Sodium 132 mmol/L (137-145)
[2020-08-04 06:15] LABS: Glucose Point of Care 113 (65-105)
[2020-08-04] MEDS: PANTOPRAZOLE SODIUM IV 40 MG VIAL IV PUSH ×2 (08:46→21:56)
[2020-08-04] MEDS: ENOXAPARIN 40 MG/0.4 ML SYRINGE SUB-Q (08:46)
--- NOTE | 2020-08-04 08:49 | PM.PNGS ---
Progress Note: A&P Assessment and Plan (1) Sigmoid stricture: Code(s): K56.699 - Other intestinal obstruction unspecified as to partial versus complete obstruction Status: Acute Assessment and Plan: better, clamp NG and poss remove later today, if able to dc will start clears, cont PPN for now, encourage OOB/IS, await path Subjective Subjective Date/Time Seen: 08/04/20 08:49 feels ok, incisional soreness, +small BM, flatus Review of Systems Review of Systems: All systems reviewed & are unremarkable except as noted in HPI and below Exam Const: General: cooperative, comfortable and no acute distress Orientation/consciousness: patient oriented x3 Resp: Auscultation: clear to auscultation bilaterally Cardio: Rate: regular rate Rhythm: regular rhythm GI: Inspection: normal to inspection, distended and incision GI Palp: Yes Soft to palpation, Yes Tenderness to palpation present (GI) and No Guarding due to palpation present (GI) Other: soft, sl dist, caleb TTP, incision C/D/I, JOANNE c scant s/s Objective Data Vital Signs Vital Signs: Vital Signs - 24 hr 08/03/20 09:45 08/03/20 11:43 08/03/20 13:48 Temperature 36.6 C 36.8 C Pulse Rate 106 H 88 Respiratory Rate 18 16 Blood Pressure 88/56 L 122/64 119/60 Pulse Oximetry 94 94 08/03/20 13:49 08/03/20 17:00 08/03/20 18:00 Temperature 36.8 C 36.9 C Pulse Rate 88 88 Respiratory Rate 16 16 Blood Pressure 119/60 139/63 107/52 L Pulse Oximetry 94 95 08/03/20 20:42 08/04/20 01:54 08/04/20 05:31 Temperature 36.1 C L 36.0 C L 36.1 C L Pulse Rate 82 95 87 Respiratory Rate 16 16 16 Blood Pressure 102/69 114/72 114/57 L Pulse Oximetry 95 95 100 08/04/20 08:06 Temperature Pulse Rate Respiratory Rate Blood Pressure Pulse Oximetry 95 Intake/Output Intake/Output: Intake & Output 08/01/20 08/02/20 08/03/20 08/04/20 23:59 23:59 23:59 23:59 Intake Total 1650 2750 3242 300 Output Total 9355 705 9699 15 Balance 500 2711 7397 285 Meds/Results Medications: Active Medications Generic Name Dose Route Start Last Admin Trade Name Freq PRN Reason Stop Dose Admin Enoxaparin Sodium 40 mg 08/03/20 09:00 08/04/20 08:46 Enoxaparin 40 Mg/0.4 Ml Syringe SUB-Q 40 mg DAILY MATT Administration Hydromorphone HCl 1 mg 08/02/20 18:57 08/04/20 05:41 Hydromorphone Hcl Inj (*Crx) 1 Mg/Ml Syr IV PUSH 1 mg Q2H PRN Administration Pain Rated 7-10 Hydromorphone HCl 0.5 mg 08/02/20 18:57 08/03/20 20:32 Hydromorphone Hcl Inj (*Crx) 1 Mg/Ml Syr IV PUSH 0.5 mg Q2H PRN Administration Pain Rated 4-6 Piperacillin/Tazobactam/Dextrose 3.375 gm in 50 mls @ 100 mls/hr 07/31/20 13:30 08/04/20 06:11 Zosyn 3.375 Gm/D5w 50ml Pm IVPB Infused Q6HR MATT Infusion Dextrose 1,000 mls @ 50 mls/hr 08/01/20 15:06 Dextrose 10% IV CONT .Q20H PRN if PN is interrupted Amino Acids/Electrolytes/Dextrose 2,000 mls @ 100 mls/hr 08/01/20 17:00 08/03/20 16:56 Clinimix E 4.25%/5% Solution IV CONT 100 mls/hr .Q20H MATT Administration Protocol Fat Emulsion Intravenous 250 mls @ 20.833 mls/hr 08/01/20 17:00 08/04/20 07:36 Lipids 20% IVPB Infused Q24H MATT Infusion Nicotine 1 patch 07/30/20 10:32 Nicotine (*Pbkc) 7 Mg Patch TRANSDERM PRN PRN Nicotine cravings Ondansetron HCl 4 mg 07/29/20 21:00 08/03/20 16:40 Ondansetron Inj 4 Mg/2 Ml Vial IV PUSH 4 mg Q4H PRN Administration Nausea Pantoprazole Sodium 40 mg 07/30/20 09:00 08/04/20 08:46 Pantoprazole Sodium Iv 40 Mg Vial IV PUSH 40 mg Q12HR MATT Administration Radiology Results: ITS Impressions Abdomen/Pelvis CT 07/29/20 18:38 IMPRESSION: 1. Obstructing annular mass in the sigmoid colon highly suspicious for colon cancer. Recommend colonoscopy for further evaluation. 2. 3 small low-attenuation hepatic lesions most likely hepatic cysts or hemangiomas although the largest demonstrates a couple tin
--- NOTE | 2020-08-04 09:40 | PM.IMPN ---
Progress Note: A&P Assessment and Plan (1) Bowel obstruction: Qualifiers: Intestinal obstruction extent: unspecified extent Intestinal obstruction type: unspecified Qualified Code(s): K56.609 - Unspecified intestinal obstruction, unspecified as to partial versus complete obstruction Code(s): K56.609 - Unspecified intestinal obstruction, unspecified as to partial versus complete obstruction Status: Acute Assessment and Plan: Patient brought into the hospital after being found to have an obstructing annular mass in the sigmoid colon which is highly suspicious for colon cancer. This was causing an obstruction so NG tube was placed to intermittent suction. GI preformed sigmoidoscopy which showed diverticulosis, colonic stenosis and internal hemorrhoids 07/31/20. Biopsies taken and pending. Dr. Petersen Surgery took patient to surgery 08/02/20 and performed Sigmoid colectomy with end to side colorectal anastomosis. Ileal resection with [id number] ileal anastomosis. Massive adhesiolysis requiring about 90 minutes which was greater than 50% of the total operating time. Continue Pain control with IV medications and antiemetics PRN IV nutrition has been started by Surgery Plan is to clamp NG tube and if doing well in 4 hrs, Surgery will remove NG and start Clears. Surgery and GI were consulted and their input is greatly appreciated Continue monitoring. (2) Colonic mass: Code(s): K63.89 - Other specified diseases of intestine Status: Acute Assessment and Plan: Biopsies still pending. Will defer to surgery and GI. Appreciate their input. CEA testing is normal. (3) GERD (gastroesophageal reflux disease): Code(s): K21.9 - Gastro-esophageal reflux disease without esophagitis Status: Inactive Assessment and Plan: Continue PPI IV b.i.d.. (4) Hypokalemia: Code(s): E87.6 - Hypokalemia Status: Acute Assessment and Plan: Potassium was 4.9 this morning. Continue monitoring. Time Spent With Patient Time with patient: 25 - 35 minutes Subjective Date/time seen: 08/04/20 09:40 Interval history: Date of Service 08/03/20: Patient is feeling much better today. She was feeling tired yesterday after shower, working with PT/OT and was found to be hypotensive. IV Fluids helped her symptoms. She is doing well now. Passing gas, had a bowel movement this morning. Minimal abd pain since surgery. No nausea or vomiting. She denies any fevers, chills, leg swelling, calf pain, chest pain, shortness of breath or any other symptoms this time. Review of Systems Review of Systems: All systems reviewed & are unremarkable except as noted in HPI and below Exam Narrative: Exam Narrative: General: 65-year-old woman sitting up in bed with NG tube clamped. Appears to have more energy today but still appears weak and fatigued. In no acute distress. Skin: No jaundice or cyanosis. Good skin turgor. Neck: Full range of motion. Supple. Respiratory: Lungs are clear to auscultation bilaterally. No wheezing, rales or rhonchi. No bony chest wall tenderness. Cardiovascular: The heart has a regular rate and rhythm without murmur. Lower extremities: No lower extremity edema. Distal pulses are easily palpated. No calf tenderness to palpation. Gastrointestinal: Surgical dressing in place to midline abdomen. Dressing not removed will defer to surgery team. Slight Tenderness to palpation of abdomen. No guarding or rebounding. Hypoactive bowel sounds. Psychiatric: Lucid and oriented. Memory intact. Neurologic: No focal deficits. Speech is clear. No facial drooping. Objective Data Vital Signs Vital Signs: Vital Signs - 24 hr 08/03/20 09:45 08/03/20 11:43 08/03/20 13:48 Temperature 97.9 F 98
[2020-08-04] MEDS: AMINO ACIDS 4.25%/D5W/LYTES/CA 2,000 ML 100 ML IV CONT (10:42)
[2020-08-04 12:09] LABS: Glucose Point of Care 108 (65-105)
[2020-08-04 14:47] LABS: Triglycerides 133 mg/dL (<150)
[2020-08-04] MEDS: FAT EMULSIONS IV 20% 250 ML 20.83 ML IVPB (17:33)
[2020-08-04 18:25] LABS: Glucose Point of Care 111 (65-105)
[2020-08-05] VITALS (8 sets, daily range): BP systolic 116–128; BP diastolic 64–86; PULSE 63–94; RESP 16–18; TEMP 36.6–36.8; O2SAT 92–100
[2020-08-05] MEDS: HYDROmorphone HCL INJ (*CRX) 1 MG/ML SYR 0.5 MG IV PUSH ×3 (00:01→14:59)
[2020-08-05 00:07] LABS: Glucose Point of Care 121 (65-105)
[2020-08-05 05:40] LABS: Glucose Point of Care 137 (65-105)
[2020-08-05 05:46] LABS: Basophils Percent Auto 0.3 % (0.2-1.2); Eosinophils Absolute Auto 0.3 K/mm3 (0-0.3); Eosinophils Percent Auto 2.4 % (0-4.4); Hematocrit 31.8 % (37.0-47.0); Hemoglobin 10.3 g/dL (12.0-15.0); Immature Granulocyte Absolute 0.06 K/mm3 (0.00-0.031); Immature Granulocyte Percent A 0.5 % (0-0.5); Lymphocytes Absolute Auto 1.02 K/mm3 (0.9-3.2); Lymphocytes Percent Auto 8.8 % (18.3-44.2); Mean Corpuscular HGB Conc 32.4 g/dl (32-36); Mean Corpuscular Hemoglobin 27.8 pg (26-34); Mean Corpuscular Volume 85.9 fl (80-100); Mean Platelet Volume 10.1 fl (7.4-10.4); Monocytes Absolute Auto 0.9 K/mm3 (0.1-0.6); Monocytes Percent Auto 7.4 % (2.6-8.5); Neutrophils Absolute Auto 9.3 K/mm3 (1.3-6.7); Neutrophils Percent Auto 80.6 % (45.5-73.1); Platelet Count Result 275 k/mm3 (150-375); Red Cell Distribution Width 13.4 % (11.5-14.5); White Blood Count 11.6 K/mm3 (4.5-10.0)
[2020-08-05 05:56] LABS: Alanine Aminotransferase 13 U/L (4-35); Albumin Level 2.7 g/dL (3.5-5.1); Alkaline Phosphatase 70 U/L (38-126); Anion Gap 1 mmol/L (8-16); Aspartate Amino Transferase 23 U/L (14-36); Bilirubin,Total 0.4 mg/dL (0.2-1.3); Blood Urea Nitrogen 16 mg/dL (7-17); Calcium 8.5 mg/dL (8.4-10.2); Carbon Dioxide 33 mmol/L (22-30); Chloride 95 mmol/L (98-107); Estimated CRCL calculation 71 ml/min; Estimated Glomerular Filt Rate > 60; Glucose 123 mg/dL (65-105); Magnesium 1.9 mg/dL (1.6-2.3); Potassium 3.9 mmol/L (3.4-5.0); Sodium 129 mmol/L (137-145)
[2020-08-05 05:58] LABS: INR 1.1; Prothrombin Time 14.8 Seconds (11.1-14.7)
[2020-08-05 05:59] LABS: Partial Thromboplastin Time 31.9 SECONDS (22.3-36.8)
[2020-08-05 06:03] LABS: Transferrin 96 mg/dL (206-381)
[2020-08-05] MEDS: ENOXAPARIN 40 MG/0.4 ML SYRINGE SUB-Q (08:22)
[2020-08-05] MEDS: PANTOPRAZOLE SODIUM IV 40 MG VIAL IV PUSH ×2 (08:22→20:32)
[2020-08-05] MEDS: HYDROmorphone HCL INJ (*CRX) 1 MG/ML SYR IV PUSH ×2 (08:34→12:27)
[2020-08-05] MEDS: AMINO ACIDS 4.25%/D5W/LYTES/CA 2,000 ML 100 ML IV CONT (10:32)
[2020-08-05 10:38] LABS: Hematocrit 31.5 % (37.0-47.0); Hemoglobin 10.3 g/dL (12.0-15.0)
--- NOTE | 2020-08-05 11:37 | PM.IMPN ---
Progress Note: A&P Assessment and Plan (1) Bowel obstruction: Qualifiers: Intestinal obstruction extent: unspecified extent Intestinal obstruction type: unspecified Qualified Code(s): K56.609 - Unspecified intestinal obstruction, unspecified as to partial versus complete obstruction Code(s): K56.609 - Unspecified intestinal obstruction, unspecified as to partial versus complete obstruction Status: Acute Assessment and Plan: Patient brought into the hospital after being found to have an obstructing annular mass in the sigmoid colon which is highly suspicious for colon cancer. This was causing an obstruction so NG tube was placed to intermittent suction. GI preformed sigmoidoscopy which showed diverticulosis, colonic stenosis and internal hemorrhoids 07/31/20. Biopsies taken and pending. Dr. Petersen Surgery took patient to surgery 08/02/20 and performed Sigmoid colectomy with end to side colorectal anastomosis. Ileal resection with [id number] ileal anastomosis. Massive adhesiolysis requiring about 90 minutes which was greater than 50% of the total operating time. Continue Pain control with IV medications and antiemetics PRN IV nutrition has been started by Surgery Patients NG was removed and now on clears. Advance per surgery. Surgery and GI were consulted and their input is greatly appreciated Continue monitoring. (2) Colonic mass: Code(s): K63.89 - Other specified diseases of intestine Status: Acute Assessment and Plan: Biopsies still pending. Will defer to surgery and GI. Appreciate their input. CEA testing is normal. (3) GERD (gastroesophageal reflux disease): Code(s): K21.9 - Gastro-esophageal reflux disease without esophagitis Status: Inactive Assessment and Plan: Continue PPI IV b.i.d.. (4) Normocytic anemia: Code(s): D64.9 - Anemia, unspecified Status: Acute Assessment and Plan: H&H this morning was lower at 10/31%. Patient had normal H&H 2 days ago at 1 day post-op. Could be dilutional from IV fluid hydration and clinimex nutrition. Patient has no signs of active bleeding at this time. No have bowel movements yet since surgery. BP stable. Only on Clinimex at this time, not had IV fluids for over 24 hrs. Continue monitoring at this time. Surgery dose have her on Lovenox injections for DVT prophylaxis. Discussed with surgery and recommends rechecking labs in the morning. Continue monitoring H&H. Transfuse as needed for hemoglobin less than 7. No acute signs of bleeding at this time (5) Hypokalemia: Code(s): E87.6 - Hypokalemia Status: Acute Assessment and Plan: Potassium was 3.9 this morning. Stable. Continue monitoring. Time Spent With Patient Time with patient: 25 - 35 minutes Subjective Date/time seen: 08/05/20 11:37 Interval history: Date of Service 08/05/20: Patient is feeling better today, she ate a clear liquid diet and tolerated it well. No nausea. She walked the halls with therapy and is now just tired. Abdominal discomfort, controlled at this time with pain medications. Passing gas, no bowel movement today. No vomiting. She denies any fevers, chills, leg swelling, calf pain, chest pain, shortness of breath or any other symptoms this time. Review of Systems Review of Systems: All systems reviewed & are unremarkable except as noted in HPI and below Exam Narrative: Exam Narrative: General: 65-year-old woman sitting up in bed resting comfortably, no NG tube. Appears to have more energy today but still appears weak and fatigued. In no acute distress. Skin: No jaundice or cyanosis. Good skin turgor. Neck: Full range of motion. Supple. Respiratory: Lungs are clear to
--- NOTE | 2020-08-05 12:37 | PM.PNGS ---
Progress Note: A&P Assessment and Plan (1) Sigmoid stricture: Code(s): K56.699 - Other intestinal obstruction unspecified as to partial versus complete obstruction Status: Acute Assessment and Plan: POD#3 and doing well. Pain well-controlled. Tolerating clear liquids, awaiting full return of bowel function. Will advance to full liquids today and stop PPN. Switch to oral analgesics. Monitor JOANNE drain to bulb suction. Encouraged increased activity and IS use. Surgical pathology pending. (2) Normocytic anemia: Code(s): D64.9 - Anemia, unspecified Status: Acute Assessment and Plan: Hbg 10.3 today in comparison to 13 when checked 2 days ago. No signs of active bleeding, hemodynamically stable. Repeat labs tomorrow and monitor. Subjective Subjective Date/Time Seen: 08/05/20 12:37 Post Op day: 3 (sigmoid colectomy, ileal resection, adhesiolysis) Patient reports: no new complaints, tolerating liquids well and flatus Interval history: Reports some heartburn this morning. No nausea or vomiting. Reports flatus, she believes she had a small liquid BM this am. Pain well controlled. Review of Systems Review of Systems: All systems reviewed & are unremarkable except as noted in HPI and below Constitutional: Constitutional: Reports as per HPI, Reports no additional constitutional complaints, Denies chills and Denies fever(s) Cardiovascular: Cardiovascular: Reports no additional cardiovascular complaints, Denies chest pain, Denies leg edema and Denies dyspnea Respiratory: Respiratory: Reports no additional respiratory complaints, Denies cough and Denies dyspnea Gastrointestinal: Gastrointestinal: Reports as per HPI and Reports no additional gastrointestinal complaints Neurologic: Reports system reviewed and no additional complaints, except as documented Exam Const: General: comfortable, no acute distress, alert and awake Orientation/consciousness: patient oriented x3 Resp: Effort & Inspection: normal respiratory effort Auscultation: clear to auscultation bilaterally Cardio: Rate: regular rate Rhythm: regular rhythm GI: Inspection: incision (Midine incision clean and dry, galdino intact) and other (mildly distended) GI Palp: Yes Soft to palpation, Yes Tenderness to palpation present (GI) (appropriate incisional tenderness) and Yes Other GI palpation findings present (JOANNE with minimal serosanguineous drainage) Auscultation: normal bowel sounds Skin: General skin exam: normal color Neuro: General: moves all extremities and no focal motor deficits Extrem: General: no clubbing, cyanosis or edema and no calf tenderness Psych: Mental Status: mental status grossly normal Insight: Good insight present (Psych) Judgement: Good judgement present (Psych) Objective Data Vital Signs Vital Signs: Vital Signs - 24 hr 08/04/20 14:00 08/04/20 18:00 08/04/20 21:37 Temperature 98.7 F 98.3 F 97.1 F L Pulse Rate 92 100 90 Respiratory Rate 16 16 16 Blood Pressure 110/67 103/61 115/67 Pulse Oximetry 95 98 95 08/05/20 02:01 08/05/20 05:41 08/05/20 07:47 Temperature 98.3 F 98.2 F Pulse Rate 63 91 Respiratory Rate 16 16 Blood Pressure 116/69 128/64 Pulse Oximetry 95 96 92 08/05/20 10:00 Temperature 98.3 F Pulse Rate 92 Respiratory Rate 18 Blood Pressure 125/86 Pulse Oximetry 100 Intake/Output Intake/Output: Intake & Output 08/02/20 08/03/20 08/04/20 08/05/20 23:59 23:59 23:59 23:59 Intake Total 2750 3242 2620 2990 Output Total 230 1375 450 515 Balance 2520 1867 2170 2475 Meds/Results Medications: Active Medications Generic Name Dose Route Start Last Admin Trade Name Freq PRN Reason Stop Dose Admin Enoxaparin Sodium 40 mg 08/03/20 09:00 08/05/20 08:22 Enoxaparin 40 Mg/0.4 Ml Syringe SUB-Q 40 mg DAILY MATT Administration Hydromorphone HCl 1 mg 08/02/20 18:57 08/05/20 12:27 Hydromorphone Hcl Inj (*Crx) 1 Mg/Ml Syr IV PUSH 1 mg Q2H PRN Administra
[2020-08-05] MEDS: SALINE LOCK FLUSH 10 ML IV PUSH ×2 (15:00→20:32)
[2020-08-05] MEDS: ONDANSETRON INJ 4 MG/2 ML VIAL IV PUSH (16:50)
[2020-08-05] MEDS: HYDROcodone/acetaminophen (*CRX) 10-325 MG TABLET 1 TAB PO (21:19)
[2020-08-06 00:24] VITALS: BP 105/60; PULSE 86; RESP 16; TEMP 36.7; O2SAT 95
[2020-08-06 04:50] VITALS: BP 115/61; PULSE 93; RESP 20; TEMP 36.3; O2SAT 97
[2020-08-06] MEDS: SALINE LOCK FLUSH 10 ML IV PUSH ×3 (06:14→21:00)
[2020-08-06 06:40] LABS: Basophils Percent Auto 0.5 % (0.2-1.2); Eosinophils Absolute Auto 0.3 K/mm3 (0-0.3); Eosinophils Percent Auto 3.5 % (0-4.4); Hematocrit 29.5 % (37.0-47.0); Hemoglobin 9.6 g/dL (12.0-15.0); Immature Granulocyte Absolute 0.05 K/mm3 (0.00-0.031); Immature Granulocyte Percent A 0.7 % (0-0.5); Lymphocytes Absolute Auto 0.86 K/mm3 (0.9-3.2); Lymphocytes Percent Auto 11.7 % (18.3-44.2); Mean Corpuscular HGB Conc 32.5 g/dl (32-36); Mean Corpuscular Hemoglobin 27.8 pg (26-34); Mean Corpuscular Volume 85.5 fl (80-100); Mean Platelet Volume 9.7 fl (7.4-10.4); Monocytes Absolute Auto 0.9 K/mm3 (0.1-0.6); Monocytes Percent Auto 12.8 % (2.6-8.5); Neutrophils Absolute Auto 5.2 K/mm3 (1.3-6.7); Neutrophils Percent Auto 70.8 % (45.5-73.1); Platelet Count Result 303 k/mm3 (150-375); Red Blood Count 3.45 M/mm3 (4.2-5.4); Red Cell Distribution Width 13.5 % (11.5-14.5); White Blood Count 7.3 K/mm3 (4.5-10.0)
[2020-08-06 06:58] LABS: Anion Gap 1 mmol/L (8-16); Blood Urea Nitrogen 9 mg/dL (7-17); Calcium 8.5 mg/dL (8.4-10.2); Carbon Dioxide 32 mmol/L (22-30); Chloride 98 mmol/L (98-107); Estimated CRCL calculation 71 ml/min; Estimated Glomerular Filt Rate > 60; Glucose 96 mg/dL (65-105); Phosphorus 3.4 mg/dL (2.5-4.5); Potassium 3.9 mmol/L (3.4-5.0); Sodium 131 mmol/L (137-145)
[2020-08-06] MEDS: PANTOPRAZOLE SODIUM IV 40 MG VIAL IV PUSH ×2 (08:56→20:58)
[2020-08-06] MEDS: ENOXAPARIN 40 MG/0.4 ML SYRINGE SUB-Q (08:56)
[2020-08-06] MEDS: HYDROcodone/acetaminophen (*CRX) 10-325 MG TABLET 1 TAB PO ×3 (08:56→23:51)
--- NOTE | 2020-08-06 09:00 | PM.PNGS ---
Progress Note: A&P Assessment and Plan (1) Sigmoid stricture: Code(s): K56.699 - Other intestinal obstruction unspecified as to partial versus complete obstruction Status: Acute Assessment and Plan: Advance to soft diet Increase activity Pathology pending Subjective Subjective Date/Time Seen: 08/06/20 09:00 Interval history: Bowels moving. Tolerating full liquids. Pain controlled. Up ambulating with PT. Exam Const: General: comfortable, no acute distress, alert and awake Orientation/consciousness: patient oriented x3 Resp: Effort & Inspection: normal respiratory effort Auscultation: clear to auscultation bilaterally Cardio: Rate: regular rate Rhythm: regular rhythm GI: Inspection: incision (Midine incision clean and dry, galdino intact) and other (mildly distended) GI Palp: Yes Soft to palpation, Yes Tenderness to palpation present (GI) (appropriate incisional tenderness) and Yes Other GI palpation findings present (JOANNE with minimal serosanguineous drainage) Auscultation: normal bowel sounds Skin: General skin exam: normal color Neuro: General: moves all extremities and no focal motor deficits Extrem: General: no clubbing, cyanosis or edema and no calf tenderness Psych: Mental Status: mental status grossly normal Insight: Good insight present (Psych) Judgement: Good judgement present (Psych) Objective Data Vital Signs Vital Signs: Vital Signs - 24 hr 08/05/20 10:00 08/05/20 14:00 08/05/20 18:00 Temperature 36.8 C 36.7 C 36.8 C Pulse Rate 92 94 90 Respiratory Rate 18 18 18 Blood Pressure 125/86 127/70 122/70 Pulse Oximetry 100 98 99 08/05/20 20:00 08/05/20 20:46 08/06/20 00:24 Temperature 36.6 C 36.7 C Pulse Rate 86 86 86 Respiratory Rate 18 18 16 Blood Pressure 117/69 105/60 Pulse Oximetry 92 92 95 08/06/20 04:50 Temperature 36.3 C L Pulse Rate 93 Respiratory Rate 20 Blood Pressure 115/61 Pulse Oximetry 97 Intake/Output Intake/Output: Intake & Output 08/03/20 08/04/20 08/05/20 08/06/20 23:59 23:59 23:59 23:59 Intake Total 3242 2620 4179 250 Output Total 2591 701 2632 1210 Balance 1867 2170 3054 -960 Meds/Results Medications: Active Medications Generic Name Dose Route Start Last Admin Trade Name Freq PRN Reason Stop Dose Admin Hydrocodone Bitart/Acetaminophen 1 tab 08/05/20 12:48 Hydrocodone/Acetaminophen (*Crx) 5-325 Mg Tablet PO Q4H PRN Pain Rated 4-6 Hydrocodone Bitart/Acetaminophen 1 tab 08/05/20 12:48 08/05/20 21:19 Hydrocodone/Acetaminophen (*Crx) 10-325 Mg Tablet PO 1 tab Q4H PRN Administration Pain Rated 7-10 Enoxaparin Sodium 40 mg 08/03/20 09:00 08/05/20 08:22 Enoxaparin 40 Mg/0.4 Ml Syringe SUB-Q 40 mg DAILY MATT Administration Hydromorphone HCl 1 mg 08/02/20 18:57 08/05/20 12:27 Hydromorphone Hcl Inj (*Crx) 1 Mg/Ml Syr IV PUSH 1 mg Q2H PRN Administration Pain Rated 7-10 Hydromorphone HCl 0.5 mg 08/02/20 18:57 08/05/20 14:59 Hydromorphone Hcl Inj (*Crx) 1 Mg/Ml Syr IV PUSH 0.5 mg Q2H PRN Administration Pain Rated 4-6 Piperacillin/Tazobactam/Dextrose 3.375 gm in 50 mls @ 100 mls/hr 07/31/20 13:30 08/06/20 06:51 Zosyn 3.375 Gm/D5w 50ml Pm IVPB Infused Q6HR MATT Infusion Nicotine 1 patch 07/30/20 10:32 Nicotine (*Pbkc) 7 Mg Patch TRANSDERM PRN PRN Nicotine cravings Ondansetron HCl 4 mg 07/29/20 21:00 08/05/20 16:50 Ondansetron Inj 4 Mg/2 Ml Vial IV PUSH 4 mg Q4H PRN Administration Nausea Pantoprazole Sodium 40 mg 07/30/20 09:00 08/05/20 20:32 Pantoprazole Sodium Iv 40 Mg Vial IV PUSH 40 mg Q12HR MATT Administration Sodium Chloride 10 ml 08/05/20 14:00 08/06/20 06:14 Saline Lock Flush IV PUSH 10 ml Q8HR MATT Administration Sodium Chloride 10 ml 08/05/20 09:46 Saline Lock Flush IV PUSH PRN PRN Flush Sodium Chloride 20 ml 08/05/20 09:46 Saline Lock Flush IV PUSH PRN TX
[2020-08-06 10:00] VITALS: BP 115/64; PULSE 74; RESP 18; TEMP 36.6; O2SAT 99
--- NOTE | 2020-08-06 11:34 | PCNFU ---
Nutrition Follow-Up Complete: Altered GI function as related to obstruction as evidenced by NPO/PPN. goal: Meet estimated nutritional needs Patient is progressing towards goal. We will continue current goal. Pt current nutrition is soft and bite sized, level 6. Last recorded weight is 79 kg, up from 75.2 kg on admit. Bowel Motility:+BM reported 08/06 Labs Reviewed:Na 131,Hct 29.5,Hgb 9.6 Meds Noted:Lovonex, Dilaudid,Protonix,Zosyn,[place] Additional Notes: Patient seen today for nutrition follow up. PPN has been discontinued. Patient states to tolerating some foods but nothing is tasting good to her. We discussed diet supplements. She is going to try the frozen nutritional treat-MD ihsan orders to start. PO intake is encouraged. Will continue to monitor every 3 days.
--- NOTE | 2020-08-06 12:34 | PM.IMPN ---
Progress Note: A&P Assessment and Plan (1) Bowel obstruction: Qualifiers: Intestinal obstruction extent: unspecified extent Intestinal obstruction type: unspecified Qualified Code(s): K56.609 - Unspecified intestinal obstruction, unspecified as to partial versus complete obstruction Code(s): K56.609 - Unspecified intestinal obstruction, unspecified as to partial versus complete obstruction Status: Acute Assessment and Plan: Patient found to have obstructing colonic mass. Dr Albright performed sigmoidoscopy 07/31 which showed diverticulosis, colonic stenosis and internal hemorrhoids 07/31/20. She was then taken to surgery 08/02 and is now POD#4 s/p sigmoid colectomy, ileal resection with [id number] anastomoses, adhesiolysis by Dr. Harper. Diet advancement per surgery. Continue supportive care with pain control, antiemetics PRN. Agree with increasing activity. Continue surgery recommendations. (2) Colonic mass: Code(s): K63.89 - Other specified diseases of intestine Status: Acute Assessment and Plan: Management per surgery and GI. Appreciate their input. CEA testing is normal. Pathology from surgery is pending. (3) GERD (gastroesophageal reflux disease): Code(s): K21.9 - Gastro-esophageal reflux disease without esophagitis Status: Acute Assessment and Plan: Continue PPI IV b.i.d.. (4) Normocytic anemia: Code(s): D64.9 - Anemia, unspecified Status: Acute Assessment and Plan: H&H trending down; may have been partly dilutional from IV fluid hydration and peripheral nutrition days prior. No evidence of acute bleeding. Continue to monitor H&H, monitor for any signs of bleeding, consider transfusion for Hgb < 7. (5) Hypokalemia: Code(s): E87.6 - Hypokalemia Status: Acute Assessment and Plan: Potassium was 3.9 this morning. Stable. Continue monitoring. Subjective Date/time seen: 08/06/20 1145 Interval history: Ms. Byrd is a pleasant 65yo F admitted due to an obstructing colonic mass and sigmoid stricture now POD#4 s/p sigmoid colectomy and ileal resection with [id number] anastomoses. She is doing well today, seen sitting up in the bedside chair eating her first tray of soft foods. She has had 2 soft bowel movements today and is passing flatus, having expected amount of abdominal discomfort without nausea or vomiting. No chest pain or shortness of breath. Review of Systems Review of Systems: All systems reviewed & are unremarkable except as noted in HPI and below Exam Narrative: Exam Narrative: General: Female resting comfortably sitting up in bedside chair eating lunch in no acute distress. HEENT: Normocephalic, EOMI, oral mucosa moist. Cardiovascular: Rate and rhythm are regular. Respiratory: Lungs clear to auscultation bilaterally. Respirations even and non-labored. Abdomen: Soft, non-distended, bowel sounds present, mild discomfort to palpation. JOANNE drain right abdomen, midline abdominal incision is closed with galdino and overlying dressing is clean, dry, intact. Extremities: Peripheral pulses intact. No edema. Neuro: No focal neurological deficits. Speech is clear. Objective Data Vital Signs Vital Signs: Last Vital Signs Temp 97.8 F 08/06/20 10:00 Pulse 74 08/06/20 10:00 Resp 18 08/06/20 10:00 BP 115/64 08/06/20 10:00 Pulse Ox 99 08/06/20 10:00 Intake/Output Intake/Output: Intake & Output 08/03/20 08/04/20 08/05/20 08/06/20 23:59 23:59 23:59 23:59 Intake Total 3242 2620 4179 430 Output Total 3319 907 4502 1210 Balance 7857 1277 4538 -491 Meds/Results Medications: Active Medications Generic Name Dose Route Start Last Admin Trade Name Freq PRN
--- NOTE | 2020-08-06 12:36 | WPDGIPROGNO ---
Progress Note: A&P Assessment and Plan (1) Sigmoid stricture: Code(s): K56.699 - Other intestinal obstruction unspecified as to partial versus complete obstruction Status: Acute Assessment and Plan: recovering from surgery, path showed diverticulitis with abscess, no malignancy. Also portion of small bowel without malignancy. advancing diet by surgery (2) Diverticulitis large intestine: Code(s): K57.32 - Diverticulitis of large intestine without perforation or abscess without bleeding Status: Acute Assessment and Plan: on antibiotics improving we can do colonoscopy in 3-4 months as outpatient when fully recovered (never had one and this time only we did a sigmoidoscopy with poor prep) (3) Nausea and vomiting in adult: Code(s): R11.2 - Nausea with vomiting, unspecified Status: Acute Assessment and Plan: resolved (4) Lower abdominal pain: Code(s): R10.30 - Lower abdominal pain, unspecified Status: Acute Subjective Date/time seen: 08/06/20 12:36 Interval history: she is recovering from surgery, eating more and less abdominal pain Review of Systems Review of Systems: All systems reviewed & are unremarkable except as noted in HPI and below Exam Const: General: comfortable, no acute distress, alert and awake Orientation/consciousness: patient oriented x3 HENMT: General nose exam: Normal nares present Eyes: Sclera: sclerae normal Neck: Neck: supple Resp: Effort & Inspection: normal respiratory effort Auscultation: clear to auscultation bilaterally Cardio: Rate: regular rate Rhythm: regular rhythm GI: Inspection: incision (Midine incision clean and dry, galdino intact) and other (mildly distended) GI Palp: Yes Soft to palpation, Yes Tenderness to palpation present (GI) (appropriate incisional tenderness) and Yes Other GI palpation findings present (JOANNE with minimal serosanguineous drainage) Auscultation: normal bowel sounds Skin: General skin exam: normal color Neuro: General: moves all extremities and no focal motor deficits Speech: normal speech Extrem: General: normal to inspection, no clubbing, cyanosis or edema and no calf tenderness Psych: Mental Status: mental status grossly normal Insight: Good insight present (Psych) Judgement: Good judgement present (Psych) Objective Data Vital Signs Vital Signs: Vital Signs - 24 hr 08/05/20 14:00 08/05/20 18:00 08/05/20 20:00 Temperature 98.1 F 98.3 F Pulse Rate 94 90 86 Respiratory Rate 18 18 18 Blood Pressure 127/70 122/70 Pulse Oximetry 98 99 92 08/05/20 20:46 08/06/20 00:24 08/06/20 04:50 Temperature 97.9 F 98.0 F 97.3 F L Pulse Rate 86 86 93 Respiratory Rate 18 16 20 Blood Pressure 117/69 105/60 115/61 Pulse Oximetry 92 95 97 08/06/20 10:00 Temperature 97.8 F Pulse Rate 74 Respiratory Rate 18 Blood Pressure 115/64 Pulse Oximetry 99 Intake/Output Intake/Output: Intake & Output 08/03/20 08/04/20 08/05/20 08/06/20 23:59 23:59 23:59 23:59 Intake Total 3242 2620 4179 430 Output Total 2570 073 2869 1210 Balance 1867 2170 3054 -328 Meds/Results Medications: Active Medications Generic Name Dose Route Start Last Admin Trade Name Freq PRN Reason Stop Dose Admin Hydrocodone Bitart/Acetaminophen 1 tab 08/05/20 12:48 Hydrocodone/Acetaminophen (*Crx) 5-325 Mg Tablet PO Q4H PRN Pain Rated 4-6 Hydrocodone Bitart/Acetaminophen 1 tab 08/05/20 12:48 08/06/20 08:56 Hydrocodone/Acetaminophen (*Crx) 10-325 Mg Tablet PO 1 tab Q4H PRN Administration Pain Rated 7-10 Enoxaparin Sodium 40 mg 08/03/20 09:00 08/06/20 08:56 Enoxaparin 40 Mg/0.4 Ml Syringe SUB-Q 40 mg DAILY MATT Administration Hydromorphone HCl 1 mg 08/02/20 18:57 08/05/20 12:27 Hydromorphone Hcl Inj (*Crx) 1 Mg/Ml Syr IV PUSH 1 mg Q2H PRN Administration Pain Rated 7-10 Hydromorphone HCl 0.5 mg 08/02/20 18:57 08/05/20 14:59 Hydromorphone Hcl I
[2020-08-06 14:00] VITALS: BP 107/56; PULSE 73; RESP 16; TEMP 36.3; O2SAT 99
[2020-08-06 18:00] VITALS: BP 114/57; PULSE 88; RESP 18; TEMP 36.6; O2SAT 97
[2020-08-06 20:02] VITALS: BP 108/58; PULSE 89; RESP 18; TEMP 36.2; O2SAT 94
[2020-08-07] VITALS (7 sets, daily range): BP systolic 104–121; BP diastolic 53–65; PULSE 75–92; RESP 16–20; TEMP 35.9–37.1; O2SAT 96–100
[2020-08-07] MEDS: HYDROcodone/acetaminophen (*CRX) 10-325 MG TABLET 1 TAB PO ×2 (05:38→18:27)
[2020-08-07] MEDS: SALINE LOCK FLUSH 20 ML IV PUSH (05:39)
[2020-08-07] MEDS: SALINE LOCK FLUSH 10 ML IV PUSH ×3 (05:39→21:55)
[2020-08-07 05:48] LABS: Hematocrit 28.7 % (37.0-47.0); Hemoglobin 9.4 g/dL (12.0-15.0); Mean Corpuscular HGB Conc 32.8 g/dl (32-36); Mean Corpuscular Hemoglobin 27.4 pg (26-34); Mean Corpuscular Volume 83.7 fl (80-100); Mean Platelet Volume 9.3 fl (7.4-10.4); Platelet Count Result 334 k/mm3 (150-375); Red Blood Count 3.43 M/mm3 (4.2-5.4); Red Cell Distribution Width 13.3 % (11.5-14.5); White Blood Count 9.3 K/mm3 (4.5-10.0)
[2020-08-07 05:57] LABS: Anion Gap 3 mmol/L (8-16); Blood Urea Nitrogen 8 mg/dL (7-17); Calcium 8.5 mg/dL (8.4-10.2); Carbon Dioxide 32 mmol/L (22-30); Chloride 99 mmol/L (98-107); Estimated CRCL calculation 71 ml/min; Estimated Glomerular Filt Rate > 60; Glucose 84 mg/dL (65-105); Magnesium 1.8 mg/dL (1.6-2.3); Potassium 3.6 mmol/L (3.4-5.0); Sodium 134 mmol/L (137-145)
[2020-08-07] MEDS: PANTOPRAZOLE SODIUM IV 40 MG VIAL IV PUSH ×2 (09:01→20:06)
[2020-08-07] MEDS: ENOXAPARIN 40 MG/0.4 ML SYRINGE SUB-Q (09:01)
[2020-08-07] MEDS: MAGNESIUM OXIDE 200 MG TABLET PO ×2 (09:02→20:06)
--- NOTE | 2020-08-07 12:55 | PM.IMPN ---
Progress Note: A&P Assessment and Plan (1) Bowel obstruction: Qualifiers: Intestinal obstruction extent: unspecified extent Intestinal obstruction type: unspecified Qualified Code(s): K56.609 - Unspecified intestinal obstruction, unspecified as to partial versus complete obstruction Code(s): K56.609 - Unspecified intestinal obstruction, unspecified as to partial versus complete obstruction Status: Acute Assessment and Plan: Patient found to have obstructing colonic mass. Dr Albright performed sigmoidoscopy 07/31 which showed diverticulosis, colonic stenosis and internal hemorrhoids 07/31/20. She was then taken to surgery 08/02 and is now POD#5 s/p sigmoid colectomy, ileal resection with [id number] anastomoses, adhesiolysis by Dr. Harper. Diet advancement per surgery. Tolerating a soft diet now. Continue supportive care with pain control, antiemetics PRN. Agree with increasing activity. Continue surgery recommendations. Anticipate possible discharge tomorrow. (2) Colonic mass: Code(s): K63.89 - Other specified diseases of intestine Status: Acute Assessment and Plan: Management per surgery and GI. Appreciate their input. CEA testing is normal. Pathology from surgery shows evidence of diverticulitis, abscesses without any evidence of neoplasm. (3) GERD (gastroesophageal reflux disease): Qualifiers: Esophagitis presence: without esophagitis Qualified Code(s): K21.9 - Gastro-esophageal reflux disease without esophagitis Code(s): K21.9 - Gastro-esophageal reflux disease without esophagitis Status: Acute Assessment and Plan: Continue PPI IV b.i.d.. (4) Normocytic anemia: Code(s): D64.9 - Anemia, unspecified Status: Acute Assessment and Plan: H&H trending down; may have been partly dilutional from IV fluid hydration and peripheral nutrition days prior in addition to surgical blood loss. No evidence of acute bleeding. Continue to monitor H&H, monitor for any signs of bleeding, consider transfusion for Hgb < 7. Subjective Date/time seen: 08/07/20 1130 Interval history: Ms. Byrd is a pleasant 65yo F admitted due to an obstructing colonic mass and sigmoid stricture now POD#5 s/p sigmoid colectomy and ileal resection with [id number] anastomoses. She is doing OK today, notes she is easily fatigued from a long morning of physical therapy and sitting up in a chair. She is starting to get some abdominal pain but denies any nausea or vomiting. Tolerated her soft diet for breakfast. Offers no other complaints at this time. No chest pain, shortness of breath. She is happy to hear that her pathology shows no evidence of cancer. Review of Systems Review of Systems: All systems reviewed & are unremarkable except as noted in HPI and below Exam Narrative: Exam Narrative: General: Female resting comfortably supine in bed in no acute distress. HEENT: Normocephalic, EOMI, oral mucosa moist. Cardiovascular: Rate and rhythm are regular. Respiratory: Lungs clear to auscultation bilaterally. Respirations even and non-labored. Abdomen: Soft, non-distended, bowel sounds present, mild discomfort to palpation. JOANNE drain right abdomen, midline abdominal incision is closed with galdino and overlying dressing is clean, dry, intact. Extremities: Peripheral pulses intact. No edema. Neuro: Awake and alert, answering questions appropriately. No focal neurological deficits. Speech is clear. Objective Data Vital Signs Vital Signs: Last Vital Signs Temp 98.8 F 08/07/20 10:00 Pulse 80 08/07/20 10:00 Resp 16 08/07/20 10:00 BP 106/64 08/07/20 10:00 Pulse Ox 100 08/07/20 10:00 Intake/Output Intake/Output: Intake & Output 08/04/20 08/05/20 08/06/20 05
--- NOTE | 2020-08-07 13:16 | PM.PNGS ---
Progress Note: A&P Assessment and Plan (1) Sigmoid stricture: Code(s): K56.699 - Other intestinal obstruction unspecified as to partial versus complete obstruction Status: Acute Assessment and Plan: Continues to improve. Tolerating a soft diet. Pain well controlled with oral analgesics. Continue IV abx. Continue to increase activity and strength. Continue PT. Hopefully, she can be discharged home tomorrow if she continues to progress well. Discussed pathology with patient in detail. Findings of diverticular stricture, acute diverticulitis with multiple pericolonic abscesses, serosal adhesions and acute serositis. No evidence of neoplasm. (2) Diverticulitis large intestine: Code(s): K57.32 - Diverticulitis of large intestine without perforation or abscess without bleeding Status: Acute Additional Plan I have discussed the plan of care with Dr. Harper. Subjective Subjective Date/Time Seen: 08/07/20 10:16 Post Op day: 5 Patient reports: no new complaints, feels better, tolerating a regular diet, voiding w/o difficulty, flatus, bowel movement and afebrile Interval history: Patient continues to feel better. She reports Bm this morning and tolerating soft foods well. No other complaints at this time. JOANNE drain with minimal output. Review of Systems Review of Systems: All systems reviewed & are unremarkable except as noted in HPI and below Exam Const: General: comfortable, no acute distress, alert and awake Orientation/consciousness: patient oriented x3 Resp: Effort & Inspection: normal respiratory effort Auscultation: clear to auscultation bilaterally Cardio: Rate: regular rate Rhythm: regular rhythm GI: Inspection: non-distended and incision (midline incision clean and dry, galdino intact) GI Palp: Yes Soft to palpation, Yes Tenderness to palpation present (GI) (appropriate incisional tenderness) and Yes Other GI palpation findings present (RLQ JOANNE with scant amount of dark serosanguineous drainage) Auscultation: normal bowel sounds Skin: General skin exam: normal color Neuro: General: moves all extremities and no focal motor deficits Extrem: General: no clubbing, cyanosis or edema and no calf tenderness Psych: Mental Status: mental status grossly normal Insight: Good insight present (Psych) Judgement: Good judgement present (Psych) Objective Data Vital Signs Vital Signs: Vital Signs - 24 hr 08/06/20 14:00 08/06/20 18:00 08/06/20 20:02 Temperature 97.4 F L 97.9 F 97.2 F L Pulse Rate 73 88 89 Respiratory Rate 16 18 18 Blood Pressure 107/56 L 114/57 L 108/58 L Pulse Oximetry 99 97 94 08/07/20 00:29 08/07/20 05:12 08/07/20 09:12 Temperature 96.6 F L 97 F L Pulse Rate 80 75 Respiratory Rate 18 18 18 Blood Pressure 106/57 L 116/61 Pulse Oximetry 98 96 96 08/07/20 10:00 Temperature 98.8 F Pulse Rate 80 Respiratory Rate 16 Blood Pressure 106/64 Pulse Oximetry 100 Intake/Output Intake/Output: Intake & Output 08/04/20 08/05/20 08/06/20 08/07/20 23:59 23:59 23:59 23:59 Intake Total 2620 4179 850 440 Output Total 450 1125 1610 410 Balance 2170 3054 -760 30 Meds/Results Medications: Active Medications Generic Name Dose Route Start Last Admin Trade Name Freq PRN Reason Stop Dose Admin Hydrocodone Bitart/Acetaminophen 1 tab 08/05/20 12:48 Hydrocodone/Acetaminophen (*Crx) 5-325 Mg Tablet PO Q4H PRN Pain Rated 4-6 Hydrocodone Bitart/Acetaminophen 1 tab 08/05/20 12:48 08/07/20 05:38 Hydrocodone/Acetaminophen (*Crx) 10-325 Mg Tablet PO 1 tab Q4H PRN Administration Pain Rated 7-10 Enoxaparin Sodium 40 mg 08/03/20 09:00 08/07/20 09:01 Enoxaparin 40 Mg/0.4 Ml Syringe SUB-Q 40 mg DAILY MATT Administration Hydromorphone HCl 1 mg 08/02/20 18:57 08/05/20 12:27 Hydromorphone Hcl Inj (*Crx) 1 Mg/Ml Syr IV PUSH 1 mg Q2H PRN Administration Pain Rated 7-10 Hydromorphone HCl 0.5 mg 08/02/20 18:57
[2020-08-08 02:00] VITALS: BP 129/70; PULSE 78; RESP 20; TEMP 36.1; O2SAT 98
[2020-08-08] MEDS: HYDROcodone/acetaminophen (*CRX) 10-325 MG TABLET 1 TAB PO ×2 (04:41→14:13)
[2020-08-08] MEDS: SALINE LOCK FLUSH 10 ML IV PUSH (05:26)
[2020-08-08 05:41] LABS: Hemoglobin 9.5 g/dL (12.0-15.0)
[2020-08-08 06:00] VITALS: BP 127/63; PULSE 85; RESP 20; TEMP 36.3; O2SAT 99
[2020-08-08 08:02] VITALS: RESP 20; O2SAT 100
[2020-08-08] MEDS: PANTOPRAZOLE SODIUM IV 40 MG VIAL IV PUSH (08:02)
[2020-08-08] MEDS: ENOXAPARIN 40 MG/0.4 ML SYRINGE SUB-Q (08:02)
[2020-08-08] MEDS: MAGNESIUM OXIDE 200 MG TABLET PO (08:02)
[2020-08-08 09:32] LABS: Transferrin 108 mg/dL (206-381)
[2020-08-08 09:49] LABS: Iron 12 ug/dL (37-170)
--- NOTE | 2020-08-08 09:54 | PM.DS ---
DS: Admitting Diagnosis Admitting Diagnosis Admitting Diagnosis: colonic mass with obstruction DS: Discharge Diagnosis Discharge Diagnosis (1) Bowel obstruction: Qualifiers: Intestinal obstruction extent: unspecified extent Intestinal obstruction type: unspecified Qualified Code(s): K56.609 - Unspecified intestinal obstruction, unspecified as to partial versus complete obstruction Code(s): K56.609 - Unspecified intestinal obstruction, unspecified as to partial versus complete obstruction Status: Acute Assessment and Plan: -Patient found to have obstructing colonic mass. Dr Albright performed sigmoidoscopy 07/31 which showed diverticulosis, colonic stenosis and internal hemorrhoids 07/31/20. -She was then taken to surgery 08/02 s/p sigmoid colectomy, ileal resection with [id number] anastomoses, adhesiolysis by Dr. Harper. -patient was tolerating regular diet on discharge and feeling better -plan to follow-up with surgery (2) Colonic mass: Code(s): K63.89 - Other specified diseases of intestine Status: Acute Assessment and Plan: CEA testing is normal -Pathology from surgery shows evidence of diverticulitis with abscesses without any evidence of neoplasm. (3) GERD (gastroesophageal reflux disease): Qualifiers: Esophagitis presence: without esophagitis Qualified Code(s): K21.9 - Gastro-esophageal reflux disease without esophagitis Code(s): K21.9 - Gastro-esophageal reflux disease without esophagitis Status: Acute Assessment and Plan: Continue home omeprazole (4) Normocytic anemia: Code(s): D64.9 - Anemia, unspecified Status: Acute Assessment and Plan: Hemoglobin 9.5 at discharge, down from 13.6 on admission - may have been partly dilutional from IV fluid hydration and peripheral nutrition days prior in addition to surgical blood loss. -No evidence of acute bleeding. -iron studies drawn, B12 and folate are normal -will add iron to home regimen for a month due to recent surgery and anemia DS: Summary Hospital Course Hospital Course: Patient is a 65-year-old female who presented emergency room July 29, 2020 for abdominal pain with nausea/vomiting. Vitals in the ER were temperature 36.7? C, pulse 93, respiratory rate 16, blood pressure 129/84, pulse ox 98 on room air. Initial white blood cell count 13.5, hemoglobin 13.6, hematocrit 40.9, platelets 364. BMP relatively within normal limits with exception of potassium which was 3.2. UA negative for UTI. Abdominal pelvis CT showed an obstructing annular mass in the sigmoid colon highly suspicious for colon cancer with 3 small a hepatic lesions which could be cyst, hemangioma was or less likely primary or metastatic cancer. Patient was admitted to the hospitalist service and underwent a sigmoidoscopy which showed diverticulosis, colonic stenosis and internal hemorrhoids. The patient then underwent a sigmoid colectomy with end slight colorectal anastomosis with ileal resection with [id number] ileal anastomosis with massive adhesiolysis on 08/02/2020. The patient tolerated this procedure well and her diet was slowly added back. Her pathology stricture, acute diverticulitis, abscesses and ruptured abscess but no evidence of malignancy. She received 8 days of antibiotics and improved with this. The day of discharge she was tolerating a regular diet and her pain was controlled. I discussed with her the findings of her liver on the CT and she is going to find a primary care physician follow-up with them for the MRI. Overall, the patient was feeling much better the day of discharge today to go home. Just slightly anemic likely due to blood loss throughout the stay but no active bleed was suspected. She was given iron at discharge. The patient was educated about the worrisome signs and symptoms come back to emergency room for was discharged stable condition. Time Spent with
[2020-08-08 09:58] LABS: Percent Iron Saturation 7 % (20-50)
[2020-08-08 10:00] VITALS: BP 103/53; PULSE 89; RESP 18; TEMP 36.7; O2SAT 100
[2020-08-08 10:32] LABS: Folic Acid 11.8 ng/mL (2.76->20); Vitamin B12 > 1000.0 pg/mL (239-931)
--- NOTE | 2020-08-08 10:48 | PM.PNGS ---
Progress Note: A&P Assessment and Plan (1) Sigmoid stricture: Code(s): K56.699 - Other intestinal obstruction unspecified as to partial versus complete obstruction Status: Acute Assessment and Plan: Continues to improve. Tolerating a soft diet. Pain well controlled with oral analgesics. Discontinue JOANNE drain. Okay from a surgical standpoint to discharge the patient today. Follow-up in the office in 1 week for wound check and galdino to be removed. Stop antibiotics on discharge. Additional Plan I have discussed the plan of care with Dr. Harper. Subjective Subjective Date/Time Seen: 08/08/20 10:48 Post Op day: 6 Patient reports: no new complaints, tolerating a regular diet, voiding w/o difficulty, flatus, bowel movement and afebrile Interval history: Patient feeling even better today. No specific complaints. Pain well controlled. Review of Systems Cardiovascular: Cardiovascular: Reports no additional cardiovascular complaints and Denies chest pain Respiratory: Respiratory: Reports no additional respiratory complaints and Denies dyspnea Gastrointestinal: Gastrointestinal: Reports no additional gastrointestinal complaints, Denies nausea and Denies vomiting Exam Const: General: comfortable, no acute distress, alert and awake Orientation/consciousness: patient oriented x3 Resp: Effort & Inspection: normal respiratory effort Auscultation: clear to auscultation bilaterally Cardio: Rate: regular rate Rhythm: regular rhythm GI: Inspection: non-distended, incision (Midline incision clean and dry) and other (JOANNE drain with scant serosanguineous drainage) GI Palp: Yes Soft to palpation, Yes Tenderness to palpation present (GI) (appropriate incisional tenderness) and No Guarding due to palpation present (GI) Auscultation: normal bowel sounds Skin: General skin exam: normal color Neuro: General: moves all extremities and no focal motor deficits Extrem: General: no clubbing, cyanosis or edema and no calf tenderness Psych: Mental Status: mental status grossly normal Insight: Good insight present (Psych) Judgement: Good judgement present (Psych) Objective Data Vital Signs Vital Signs: Vital Signs - 24 hr 08/07/20 14:00 08/07/20 18:30 08/07/20 21:01 Temperature 97.9 F 97.9 F 98.3 F Pulse Rate 88 89 92 Respiratory Rate 16 16 20 Blood Pressure 110/53 L 121/61 104/65 Pulse Oximetry 99 99 98 08/08/20 02:00 08/08/20 06:00 08/08/20 08:02 Temperature 97.0 F L 97.4 F L Pulse Rate 78 85 Respiratory Rate 20 20 20 Blood Pressure 129/70 127/63 Pulse Oximetry 98 99 100 Intake/Output Intake/Output: Intake & Output 08/05/20 08/06/20 08/07/20 08/08/20 23:59 23:59 23:59 23:59 Intake Total 4179 850 1050 850 Output Total 1127 1610 1425 1300 Balance 3054 -760 -375 -450 Meds/Results Medications: Active Medications Generic Name Dose Route Start Last Admin Trade Name Freq PRN Reason Stop Dose Admin Hydrocodone Bitart/Acetaminophen 1 tab 08/05/20 12:48 Hydrocodone/Acetaminophen (*Crx) 5-325 Mg Tablet PO Q4H PRN Pain Rated 4-6 Hydrocodone Bitart/Acetaminophen 1 tab 08/05/20 12:48 08/08/20 04:41 Hydrocodone/Acetaminophen (*Crx) 10-325 Mg Tablet PO 1 tab Q4H PRN Administration Pain Rated 7-10 Enoxaparin Sodium 40 mg 08/03/20 09:00 08/08/20 08:02 Enoxaparin 40 Mg/0.4 Ml Syringe SUB-Q 40 mg DAILY MATT Administration Hydromorphone HCl 1 mg 08/02/20 18:57 08/05/20 12:27 Hydromorphone Hcl Inj (*Crx) 1 Mg/Ml Syr IV PUSH 1 mg Q2H PRN Administration Pain Rated 7-10 Hydromorphone HCl 0.5 mg 08/02/20 18:57 08/05/20 14:59 Hydromorphone Hcl Inj (*Crx) 1 Mg/Ml Syr IV PUSH 0.5 mg Q2H PRN Administration Pain Rated 4-6 Piperacillin/Tazobactam/Dextrose 3.375 gm in 50 mls @ 100 mls/hr 07/31/20 13:30 08/08/20 05:55 Zosyn 3.375 Gm/D5w 50ml Pm IVPB 100 mls/hr Q6HR MATT Infusion Magnesium Oxide 200 mg 08/07/20 09:00
[2020-08-08 14:00] VITALS: BP 128/63; PULSE 86; RESP 20; TEMP 36.7; O2SAT 98
--- NOTE | 2020-08-08 14:29 | PCPTNOTE ---
Patient refused this afternoon due to just getting back to bed and pain medication just administered and reports that she is discharging this afternoon.
== END 2020-08-08 17:30 | disposition home or self-care (01) | DRG 230 ==
LOC: ANHED 18:18 → ANH2MED 21:20
PROVIDERS: Emergency Medicine; Internal Medicine Gastroenterology; Nurse Practitioner Family; Physician Assistant; Surgery; Admitting Provider Family Medicine; Emergency Provider Emergency Medicine; Visit Provider Physician Assistant
PROC: 0DJD8ZZ Inspection of Lower Intestinal Tract, Via Natural or Artificial Opening Endoscopic (ICD-10-PCS; CPT 45378; principal; 2020-07-31 13:00)
PROC: (CPT 44143; principal; 2020-08-02 14:00)
DX: K57.20 Diverticulitis of large intestine with perforation and abscess without bleeding (principal); K56.699 Other intestinal obstruction unspecified as to partial versus complete obstruction; D62 Acute posthemorrhagic anemia; K66.0 Peritoneal adhesions (postprocedural) (postinfection); K64.8 Other hemorrhoids; K21.9 Gastro-esophageal reflux disease without esophagitis; K63.89 Other specified diseases of intestine; K59.01 Slow transit constipation; D64.9 Anemia, unspecified; E87.6 Hypokalemia; Z90.710 Acquired absence of both cervix and uterus; F17.210 Nicotine dependence, cigarettes, uncomplicated; Z90.49 Acquired absence of other specified parts of digestive tract; Z90.722 Acquired absence of ovaries, bilateral
CPT/HCPCS: 36415; 36569; 74018; 74177; 80048; 80053; 81001; 82378; 82607; 82728; 82746; 82948; 83540; 83550; 83690; 83735; 84100; 84132; 84466; 84478; 85014; 85018; 85025; 85027; 85610; 85730; 86850; 86900; 86901; 88305; 88307; 88309; 93005; 96360; 97110; 97116; 97162; 97165; 97530; 97535; 99285; A9270; C1729; C1751; C9113; J0131; J0330; J1100; J1170; J1650; J2250; J2405; J2543; J2550; J2704; J2710; J3010; J3480; J7030; J7040; J7120; Q9967

== ENCOUNTER 2020-08-12 10:09 | Observation (INO) | payer SELFPAY ==
[2020-08-12] VITALS (25 sets, daily range): BP systolic 104–126; BP diastolic 58–77; PULSE 71–111; RESP 0–20; TEMP 36.4–36.9; O2SAT 96–100; BMI 24.0
--- NOTE | ~2020-08-12 | XR_ITS ---
EXAMINATION: XR enema water soluble DATE: 08/13/2020 09:30 INDICATION: Colitis post partial colectomy with colorectal anastomosis. TECHNIQUE: A dramatic reader radiograph was obtained. A catheter was inserted into the patient's rectum. Contra st was infused by gravity. Fluoroscopic spot images and conventional radiographs were obtained. A tot al of 30 fluoroscopic spot images and 12 overhead radiographs were obtained. Fluoroscopy exposure indigo e was 0.7 minutes. Total DAP was 33.552 mGycm^2 COMPARISON: CT dated 08/12/2020 FINDINGS: Postoperative change of prior partial colectomy with rectocolic anastomotic suture line seen in the l eft hemipelvis on the dramatic reader radiograph. There is an adjacent anastomotic suture line ostomy left vandana pelvis suture with a small bowel anastomosis on prior CT . Midline skin galdino at the lower abdomen. Contrast passes readily through the patent rectocolic anastomosis with no evident stricture or extra luminal extravasation. There are several scattered colonic diverticula. Contrast extends to the dista l tip of the cecum with reflux of a small amount of contrast into the terminal ileum. There are no di lated loops of gas-filled bowel to suggest obstruction. Lung bases are clear. IMPRESSION: 1. Status post partial colectomy and rectocolic anastomosis with no associated stricture or leak. 2. Mild scattered diverticulosis. Reviewed, dictated and finalized at location A.
--- NOTE | ~2020-08-12 | CT_ITS ---
EXAMINATION: CT abdomen pelvis w con DATE: 08/12/2020 13:19 INDICATION: Bowel obstruction. TECHNIQUE: Computed tomography (CT) of the abdomen and pelvis was performed with 100 mL Omnipaque 350 intravenous contrast. Automated exposure control and iterative reconstruction technique were employe d. The dose-length product was 358.06 mGy-cm. COMPARISON: CT abdomen and pelvis 07/29/2020 FINDINGS: The visualized portions of the lung bases demonstrate mild atelectasis. No pleural effusion . The heart size is normal. No pericardial effusion. There are cysts in the liver measuring up to 14 mm. The gallbladder, spleen, pancreas, adrenal glands, and kidneys are normal. There is an anastomosi s in the rectosigmoid. There is a staple line of small bowel. There is wall thickening of the rectosi gmoid colon, consistent with colitis. There is liquid stool in the colon suggestive of diarrhea. Ther e is a small volume of pelvic ascites. There is peritoneal enhancement in the pelvis, consistent with inflammation. There is fat stranding in the peritoneum with an inferior predominance, consistent wit h inflammation. Skin galdino are noted. There is a port site in right abdomen. There are no pathologi sarah enlarged lymph nodes. There is severe lumbar spondylosis. IMPRESSION: 1. Rectosigmoid colitis, peritoneal inflammation, and small volume of pelvic ascites. Reviewed, dictated and finalized at location B. IMPRESSION: 1. Rectosigmoid colitis, peritoneal inflammation, and small volume of pelvic as cites.
[2020-08-12 10:34] LABS: Basophils Absolute Auto 0.1 K/mm3 (0.0-0.1); Basophils Percent Auto 0.3 % (0.2-1.2); Eosinophils Absolute Auto 0.1 K/mm3 (0-0.3); Eosinophils Percent Auto 0.5 % (0-4.4); Hematocrit 33.7 % (37.0-47.0); Immature Granulocyte Absolute 0.22 K/mm3 (0.00-0.031); Immature Granulocyte Percent A 1.4 % (0-0.5); Lymphocytes Absolute Auto 1.46 K/mm3 (0.9-3.2); Lymphocytes Percent Auto 9.3 % (18.3-44.2); Mean Corpuscular HGB Conc 32.6 g/dl (32-36); Mean Corpuscular Hemoglobin 27.4 pg (26-34); Mean Platelet Volume 8.3 fl (7.4-10.4); Monocytes Percent Auto 6.1 % (2.6-8.5); Neutrophils Absolute Auto 12.9 K/mm3 (1.3-6.7); Neutrophils Percent Auto 82.4 % (45.5-73.1); Platelet Count Result 551 k/mm3 (150-375); Red Blood Count 4.01 M/mm3 (4.2-5.4); Red Cell Distribution Width 13.5 % (11.5-14.5); White Blood Count 15.7 K/mm3 (4.5-10.0)
[2020-08-12 10:53] LABS: Alanine Aminotransferase 53 U/L (4-35); Albumin Level 3.4 g/dL (3.5-5.1); Alkaline Phosphatase 146 U/L (38-126); Anion Gap 8 mmol/L (8-16); Aspartate Amino Transferase 39 U/L (14-36); Bilirubin,Total 0.4 mg/dL (0.2-1.3); Blood Urea Nitrogen 9 mg/dL (7-17); Calcium 9.3 mg/dL (8.4-10.2); Carbon Dioxide 28 mmol/L (22-30); Chloride 99 mmol/L (98-107); Estimated CRCL calculation 81 ml/min; Estimated Glomerular Filt Rate > 60; Glucose 95 mg/dL (65-105); Lipase 248 U/L (23-300); Sodium 135 mmol/L (137-145)
[2020-08-12 13:45] LABS: Add Urine Microscopic? YES; Appearance Urine Cloudy (Clear); Bilirubin Urine Negative (Negative); Blood Urine 2+ (Negative); Color Urine Amber (Yellow); Glucose Urine UA Negative (Negative); Ketones Urine 2+ mg/dL (Negative); Leukocyte Esterase Ur Negative LEU/UL (Negative); Mucus Urine Heavy /lpf; Nitrate Urine Negative (Negative); Protein Urine 2+ mg/dL (Negative); RBC Urine 51-75 /hpf (0-2); Squamous Epithelial Cell Urine Many /hpf (Few)
[2020-08-12 13:54] LABS: Specific Grav Ur 1.015 (1.001-1.035)
[2020-08-12] MEDS: SODIUM CHLORIDE 0.9% IV 1,000 ML 999 ML IV CONT (14:30)
[2020-08-12] MEDS: FAMOTIDINE 20 MG/2 ML VIAL IV PUSH ×2 (14:30→21:23)
--- NOTE | 2020-08-12 14:59 | PM.IMHP ---
H&P: HPI History of Present Illness Date/Time: 08/12/20 14:59 Chief Complaint: Diarrhea, poor appetite Narrative: This is a 65-year-old woman who is being admitted for colitis. She is status post open sigmoid colectomy with colorectal anastomosis on 08/02/2020. This was done for a bowel obstruction caused by a diverticular stricture. She was discharged 08/08/2020 and was tolerating a regular diet. She states that her appetite has been poor since being discharged and she feels that everything she eats gives her a foul taste in her mouth. She has been passing some flatus and mucous stools. She denies any abdominal distension or nausea or vomiting. She has not been having very much abdominal pain. The last time she took a pain pill was on 08/10 in the morning. She denies any fevers or chills. Review of Systems Review of Systems: All systems reviewed & are unremarkable except as noted in HPI and below Eyes: Eyes: Denies change in vision ENT: Denies hearing loss, Denies neck pain and Denies sore throat Cardiovascular: Cardiovascular: Denies chest pain and Denies dyspnea Respiratory: Respiratory: Denies cough, Denies dyspnea and Denies wheezing Gastrointestinal: Gastrointestinal: Reports as per HPI Genitourinary: Genitourinary: Denies hematuria and Denies dysuria Musculoskeletal: Musculoskeletal: Denies arthralgias, Denies joint swelling and Denies neck pain Allergic/Immunologic: Allergic/Immunologic: Denies wheezing [facility] Past Medical History Medical History Colon, diverticulosis Diverticulitis large intestine GERD (gastroesophageal reflux disease) Lower abdominal pain Nausea and vomiting in adult Sigmoid stricture Surgical History Surgical History History of total abdominal hysterectomy and bilateral salpingo-oophorectomy with incidental appendectomy Family History Family History Father Acute myocardial infarction Chronic obstructive pulmonary disease Congestive heart failure Hypertension Mother Hypertension Sibling Esophageal cancer Sibling Breast cancer Social History Social History Social History: Wishes to be a full code. Smoking packs per day: 1 Smoking cigarettes per day: 20.0 Years smoked: 30 Smoking pack-years: 30.00 Smoking status: Former smoker Tobacco type: cigarettes Smoking end date: 07/29/20 Alcohol intake: never Substance use: never Additional living arrangements comments: Lives with her sister. 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 Gender identity (if verbalized by the patient): Female Sexual Orientation (if Verbalized by the Patient): Straight or Heterosexual Spiritual care concerns: No Meds Home Medications and Allergies Home Medications Medication Instructions Recorded Confirmed Type omeprazole 10 mg PO DAILY 07/29/20 08/12/20 History ferrous sulfate 324 mg PO DAILY #30 tablet 08/08/20 08/12/20 Rx hydrocodone-acetaminophen 1 - 2 tablet PO Q4H PRN #30 tablet 08/08/20 08/12/20 Rx Allergies Allergy/AdvReac Type Severity Reaction Status Date / Time No Known Allergies Allergy Verified 08/12/20 17:24 Vital Signs Vital Signs - 24 hr 08/12/20 10:22 08/12/20 12:47 08/12/20 13:30 Temperature 36.6 C Pulse Rate 111 H 87 88 Respiratory Rate 20 0 L 20 Blood Pressure 104/66 107/58 L Pulse Oximetry 98 100 100 08/12/20 13:49 08/12/20 14:00 08/12/20 14:18 Temperature Pulse Rate 86 92 83 Respiratory Rate 16 16 17 Blood Pressure 114/69 Pulse Oximetry 100 98 98 08/12/20 14:30 08/12/20 14:49 Temperature Pulse Rate 86 80 Respiratory Rate 17 18 Blood Pressure Pulse Oximetry 99 100 Exam Const: General: alert; N
[2020-08-12] MEDS: LACTATED RINGERS 1,000 ML 999 ML IV CONT (15:04)
--- NOTE | 2020-08-12 15:04 | ED.GENADULT ---
HPI - General Adult General Chief complaint: Abdominal Pain Stated complaint: no appetite, abnormal stools, s/p bowel resection Time Seen by Provider: 08/12/20 12:14 Source: patient, family, RN notes reviewed and old records reviewed Mode of arrival: ambulatory Limitations: no limitations History of Present Illness HPI narrative: Patient is a 65-year-old female who presents to emergency department for evaluation of decreased appetite mild abdominal pain and green mucousy stools up to 6 to 8/day to include incontinence patient had recently been in the hospital treated with IV antibiotics with history of complications secondary to diverticulitis requiring colon resection. Patient was recently discharged from the hospital. Patient surgeon is Dr. Hays. Patient notes fatigue but denies any vomiting rectal bleeding or melena Related Data Home Medications Medication Instructions Recorded Confirmed omeprazole 10 mg PO DAILY 07/29/20 07/31/20 Allergies Allergy/AdvReac Type Severity Reaction Status Date / Time No Known Allergies Allergy Verified 08/02/20 13:43 Review of Systems Review of Systems: All systems reviewed & are unremarkable except as noted in HPI and below PMFSH Past Medical History Medical History Colon, diverticulosis Diverticulitis large intestine GERD (gastroesophageal reflux disease) Lower abdominal pain Nausea and vomiting in adult Sigmoid stricture Surgical History Surgical History History of total abdominal hysterectomy and bilateral salpingo-oophorectomy with incidental appendectomy Family History Family History Father Acute myocardial infarction Chronic obstructive pulmonary disease Congestive heart failure Hypertension Mother Hypertension Sibling Esophageal cancer Sibling Breast cancer Social History Social History Social History: Wishes to be a full code. Years smoked: 30 Smoking status: Current every day smoker Tobacco type: cigarettes Alcohol intake: never Substance use: never Additional living arrangements comments: Lives with her sister. 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 Gender identity (if verbalized by the patient): Female Spiritual care concerns: No Exam Narrative: Exam Narrative: GENERAL: Ill-appearing, well-nourished, and in no acute distress. HEAD: Normocephalic, atraumatic. EYES: PERRLA and EOMI. ENT: Nares clear, no rhinorrhea or epistaxis. Mucous membranes moist. CHEST: Clear to auscultation. No respiratory distress. No wheezes rales or rhonchi HEART: Regular rate and rhythm. No murmur heard. Normal peripheral pulses. ABDOMEN: Soft, mild tenderness throughout the abdomen worse in the left upper and lower quadrants, nondistended. EXTREMITIES: Normal range of motion. No edema. SKIN: Warm, dry, no rash. NEURO: No focal deficits. Alert and oriented x3. PSYCH: Normal mood and affect. Course Course Emergency Course: Patient presented with GI issues continued will be brought in the hospital for dehydration and evaluated for her stools for C. difficile admitted to her surgeon patient has been hydrated and was given Zosyn as recommended by her surgeon and will be placed in hospital for further evaluation with orders for stool cultures to include C. difficile Vital Signs Vital signs: Vital Signs Temperature 97.9 F 08/12/20 10:22 Pulse Rate 111 H 08/12/20 10:22 Respiratory Rate 20 08/12/20 10:22 Blood Pressure 104/66 08/12/20 10:22 Pulse Oximetry 98 08/12/20 10:22 Temperature 97.9 F 08/12/20 10:22 Pulse Rate 80 08/12/20 14:49 Respiratory Rate 18 08/12/20 14:49 Blood Pressure 114/69 08/12/20 14:00 Pulse
[2020-08-12] MEDS: ONDANSETRON INJ 4 MG/2 ML VIAL IV PUSH (15:10)
[2020-08-12] MEDS: POTASSIUM CHLORIDE 20 MEQ TABLET 40 MEQ (16:25)
--- NOTE | 2020-08-12 16:25 | PC.NURSE ---
Pt. unable to tolerate liquid KCL. ERP aware, Pt. given PO KCL and was able to tolerate it without any N/V.
[2020-08-12 16:46] LABS: Magnesium 1.9 mg/dL (1.6-2.3); Phosphorus 3.8 mg/dL (2.5-4.5)
--- NOTE | 2020-08-12 17:05 | ADMGEN ---
This patient, Noemi Byrd, was admitted to Medical Room 245-. Patient/family oriented to hospital policies and general routines including ID bracelet, bed and alarms, visiting hours, pain management, procedures, bathroom and other care routines, personal items, smoking policy, room service/diet, and visiting hours. Information on how to activate the Rapid Response Team has been discussed. Patient/Family are encouraged to report perceived risks to care and to ask questions if they do not understand what they are told or what they should do.
[2020-08-12] MEDS: LACTATED RINGERS 1,000 ML 125 ML IV CONT (17:46)
[2020-08-13] VITALS (7 sets, daily range): BP systolic 107–115; BP diastolic 56–62; PULSE 67–89; RESP 16; TEMP 36.5–36.9; O2SAT 96–100; BMI 24.0
[2020-08-13] MEDS: LACTATED RINGERS 1,000 ML 125 ML IV CONT (02:26)
[2020-08-13 05:44] LABS: Basophils Percent Auto 0.3 % (0.2-1.2); Eosinophils Absolute Auto 0.2 K/mm3 (0-0.3); Eosinophils Percent Auto 1.5 % (0-4.4); Hemoglobin 9.3 g/dL (12.0-15.0); Immature Granulocyte Absolute 0.18 K/mm3 (0.00-0.031); Immature Granulocyte Percent A 1.4 % (0-0.5); Lymphocytes Absolute Auto 1.16 K/mm3 (0.9-3.2); Lymphocytes Percent Auto 8.8 % (18.3-44.2); Mean Corpuscular HGB Conc 33.2 g/dl (32-36); Mean Corpuscular Hemoglobin 27.3 pg (26-34); Mean Corpuscular Volume 82.1 fl (80-100); Mean Platelet Volume 8.6 fl (7.4-10.4); Monocytes Percent Auto 7.3 % (2.6-8.5); Neutrophils Absolute Auto 10.6 K/mm3 (1.3-6.7); Neutrophils Percent Auto 80.7 % (45.5-73.1); Platelet Count Result 496 k/mm3 (150-375); Red Blood Count 3.41 M/mm3 (4.2-5.4); Red Cell Distribution Width 13.7 % (11.5-14.5); White Blood Count 13.1 K/mm3 (4.5-10.0)
[2020-08-13 05:57] LABS: Alanine Aminotransferase 37 U/L (4-35); Albumin Level 2.8 g/dL (3.5-5.1); Alkaline Phosphatase 110 U/L (38-126); Anion Gap 10 mmol/L (8-16); Aspartate Amino Transferase 29 U/L (14-36); Bilirubin,Total 0.3 mg/dL (0.2-1.3); Blood Urea Nitrogen 5 mg/dL (7-17); Calcium 8.6 mg/dL (8.4-10.2); Carbon Dioxide 23 mmol/L (22-30); Chloride 103 mmol/L (98-107); Estimated CRCL calculation 96 ml/min; Estimated Glomerular Filt Rate > 60; Glucose 87 mg/dL (65-105); Potassium 3.2 mmol/L (3.4-5.0); Sodium 136 mmol/L (137-145)
[2020-08-13] MEDS: FAMOTIDINE 20 MG/2 ML VIAL IV PUSH ×2 (08:12→21:07)
--- NOTE | 2020-08-13 12:51 | PM.PNGS ---
Progress Note: A&P Assessment and Plan (1) Colitis: Code(s): K52.9 - Noninfective gastroenteritis and colitis, unspecified Status: Acute Assessment and Plan: I reviewed the contrast enema. No signs of leak or obstruction. Advance diet as tolerated. Await stool cultures and C diff studies. Will consult career development coordinator for poor appetite. Subjective Subjective Date/Time Seen: 08/13/20 12:51 Interval history: Still has poor appetite and nothing tastes good. Denies abdominal pain. +Mucous stool. Exam GI: Inspection: non-distended GI Palp: Yes Soft to palpation, No Tenderness to palpation present (GI) and No Guarding due to palpation present (GI) Objective Data Vital Signs Vital Signs: Vital Signs - 24 hr 08/12/20 13:30 08/12/20 13:49 08/12/20 14:00 Temperature Pulse Rate 88 86 92 Respiratory Rate 20 16 16 Blood Pressure 114/69 Pulse Oximetry 100 100 98 08/12/20 14:18 08/12/20 14:30 08/12/20 14:49 Temperature Pulse Rate 83 86 80 Respiratory Rate 17 17 18 Blood Pressure Pulse Oximetry 98 99 100 08/12/20 14:53 08/12/20 15:00 08/12/20 15:01 Temperature Pulse Rate 81 80 79 Respiratory Rate 16 17 18 Blood Pressure 113/70 108/70 Pulse Oximetry 99 99 99 08/12/20 15:02 08/12/20 15:57 08/12/20 16:00 Temperature Pulse Rate 81 80 91 Respiratory Rate 20 19 20 Blood Pressure Pulse Oximetry 100 100 100 08/12/20 16:01 08/12/20 16:15 08/12/20 16:41 Temperature Pulse Rate 91 85 73 Respiratory Rate 20 19 17 Blood Pressure 122/73 Pulse Oximetry 100 99 99 08/12/20 16:45 08/12/20 16:46 08/12/20 17:00 Temperature Pulse Rate 83 77 81 Respiratory Rate 17 18 18 Blood Pressure 126/77 Pulse Oximetry 98 98 98 08/12/20 17:01 08/12/20 17:15 08/12/20 19:15 Temperature 36.4 C Pulse Rate 74 71 83 Respiratory Rate 16 18 Blood Pressure 121/69 125/58 L Pulse Oximetry 96 100 97 08/12/20 20:00 08/12/20 20:46 08/13/20 01:03 Temperature 36.9 C 36.7 C Pulse Rate 81 81 71 Respiratory Rate 16 16 16 Blood Pressure 110/64 115/61 Pulse Oximetry 97 97 97 08/13/20 05:14 08/13/20 10:00 Temperature 36.7 C 36.9 C Pulse Rate 78 72 Respiratory Rate 16 16 Blood Pressure 115/56 L 107/62 Pulse Oximetry 96 97 Intake/Output Intake/Output: Intake & Output 08/10/20 08/11/20 08/12/20 08/13/20 23:59 23:59 23:59 23:59 Intake Total 2200 1200 Balance 2200 1200 Meds/Results Medications: Active Medications Generic Name Dose Route Start Last Admin Trade Name Freq PRN Reason Stop Dose Admin Famotidine 20 mg 08/12/20 21:00 08/13/20 08:12 Famotidine 20 Mg/2 Ml Vial IV PUSH 20 mg Q12HR MATT Administration Piperacillin/Tazobactam/Dextrose 3.375 gm in 50 mls @ 100 mls/hr 08/12/20 21:00 08/13/20 08:42 Zosyn 3.375 Gm/D5w 50ml Pm IVPB Infused Q6H MATT Infusion Acetaminophen 1,000 mg in 100 mls @ 400 mls/hr 08/12/20 15:11 08/13/20 08:33 Ofirmev 1,000 Mg Ivpb IVPB 08/13/20 15:12 Infused Q6H PRN Infusion Mild Pain (1-3) or Fever Ondansetron HCl 4 mg 08/12/20 15:11 Ondansetron Inj 4 Mg/2 Ml Vial IV PUSH Q4H PRN Nausea Potassium Chloride 40 meq 08/13/20 12:49 Potassium Chloride 20 Meq Tablet PO 08/13/20 12:50 ONCE ONE Radiology Results: ITS Impressions Abdomen/Pelvis CT 08/12/20 13:22 IMPRESSION: 1. Rectosigmoid colitis, peritoneal inflammation, and small volume of pelvic ascites. Enema w/Water Soluble 08/13/20 09:41 IMPRESSION: 1. Status post partial colectomy and rectocolic anastomosis with no associated stricture or leak. 2. Mild scattered diverticulosis. Labs Labs: Laboratory Results - last 24 hr 08/12/20 08/12/20 08/13/20 10:28 13:32 05:22 WBC 13.1 H RBC 3.41 L Hgb 9.3 L Hct 28.0 L MCV 82.1 MCH 27.3 MCHC 33.2 RDW 13.7 Plt Count 496 H MPV 8.6 Immature Gran % (Auto) 1.4 H Neut % (Auto) 80.7 H Lymph % (Auto) 8.8
[2020-08-13] MEDS: POTASSIUM CHLORIDE 20 MEQ TABLET 40 MEQ PO (14:41)
[2020-08-14 00:36] VITALS: BP 104/57; PULSE 84; RESP 16; TEMP 36.6; O2SAT 97
[2020-08-14] MEDS: HYDROcodone/acetaminophen (*CRX) 5-325 MG TABLET 1 TAB PO (00:47)
[2020-08-14 05:40] VITALS: BP 108/56; PULSE 72; RESP 16; TEMP 36.3; O2SAT 100
[2020-08-14 06:08] LABS: Hematocrit 29.3 % (37.0-47.0); Hemoglobin 9.5 g/dL (12.0-15.0); Mean Corpuscular HGB Conc 32.4 g/dl (32-36); Mean Corpuscular Hemoglobin 27.1 pg (26-34); Mean Corpuscular Volume 83.5 fl (80-100); Mean Platelet Volume 8.9 fl (7.4-10.4); Platelet Count Result 503 k/mm3 (150-375); Red Blood Count 3.51 M/mm3 (4.2-5.4); Red Cell Distribution Width 13.9 % (11.5-14.5); White Blood Count 13.1 K/mm3 (4.5-10.0)
[2020-08-14 06:30] LABS: Anion Gap 4 mmol/L (8-16); Blood Urea Nitrogen 6 mg/dL (7-17); Calcium 8.6 mg/dL (8.4-10.2); Carbon Dioxide 28 mmol/L (22-30); Chloride 103 mmol/L (98-107); Estimated CRCL calculation 96 ml/min; Estimated Glomerular Filt Rate > 60; Glucose 89 mg/dL (65-105); Magnesium 1.7 mg/dL (1.6-2.3); Potassium 3.3 mmol/L (3.4-5.0); Sodium 135 mmol/L (137-145)
[2020-08-14] MEDS: FAMOTIDINE 20 MG/2 ML VIAL IV PUSH (08:34)
[2020-08-14 08:57] VITALS: RESP 16; O2SAT 99
[2020-08-14 10:00] VITALS: BP 105/57; PULSE 83; RESP 14; TEMP 36.3; O2SAT 98
[2020-08-14 11:21] VITALS: O2SAT 98
--- NOTE | 2020-08-14 11:38 | PM.DS ---
DS: Admitting Diagnosis Admitting Diagnosis Admitting Diagnosis: Colitis, diarrhea DS: Discharge Diagnosis Discharge Diagnosis (1) Acute dehydration: Code(s): E86.0 - Dehydration Status: Acute (2) Colitis: Code(s): K52.9 - Noninfective gastroenteritis and colitis, unspecified Status: Acute (3) Diverticulitis large intestine: Qualifiers: Diverticulitis bleeding: without bleeding Diverticulitis complication: with perforation and abscess Qualified Code(s): K57.20 - Diverticulitis of large intestine with perforation and abscess without bleeding Code(s): K57.32 - Diverticulitis of large intestine without perforation or abscess without bleeding Status: Acute (4) UTI (urinary tract infection): Code(s): N39.0 - Urinary tract infection, site not specified Status: Acute DS: Summary Hospital Course Reason for hospitalization: Colitis, diarrhea Hospital Course: This is a 65 yo woman who presented to the ED 08/12/20 with poor appetite, diarrhea, and weakness. She was just discharged from the hospital 08/08/20 after undergoing emergent sigmoid colectomy for diverticulitis with stricture. She was tolerating diet then but didn't have much appetite. In the ED, she was found to have leukocytosis, dehydration, and evidence of colitis on CT. She was admitted and placed back on Zosyn and placed on clear liquid diet. A Gastrografin enema was performed on 08/13/20 and this showed no evidence of anastomotic leak. She was still having mucous stools and diarrhea on 08/13 and stool cultures and C diff testing was obtained. These studies are still pending. Her diet was advanced as tolerated on 08/13 and on 08/14 she was showing significant improvement. She was no longer having diarrhea, and her appetite was better. She did have a small area of redness on her abdomen around where her drain was. Mupirocin ointment was ordered. Her galdino were removed and steri-strips were applied. Urine cultures were showing evidence of E. coli. She was discharged on 08/14/20. Status at Discharge Functional status at discharge: independent ambulation Overall status at discharge: patient is progressing back to baseline Time Spent with Patient Time attestation: Total time spent providing and/or coordinating discharge services: Time spent: Less than 30 minutes Exam Const: General: comfortable and no acute distress Resp: Effort & Inspection: normal respiratory effort Auscultation: clear to auscultation bilaterally Cardio: Rate: regular rate Rhythm: regular rhythm Heart sounds: S1 normal heart sound present and S2 normal heart sound present GI: Inspection: non-distended and incision (midline wound healing) GI Palp: Yes Soft to palpation and No Tenderness to palpation present (GI) Other: 2cm area of redness and induration around RLQ drain site. No fluctuance or drainage. DS: Data Data Completed and Pending Labs on day of discharge: Labs from last 24 hours 08/14/20 08/14/20 05:26 05:26 WBC 13.1 H RBC 3.51 L Hgb 9.5 L Hct 29.3 L MCV 83.5 MCH 27.1 MCHC 32.4 RDW 13.9 Plt Count 503 H MPV 8.9 Sodium 135 L Potassium 3.3 L Chloride 103 Carbon Dioxide 28 Anion Gap 4 L BUN 6 L Creatinine 0.50 L Estim Creat Clear Calc 96 Estimated GFR > 60 Glucose 89 Calcium 8.6 Magnesium 1.7 Preliminary micro results at discharge 08/12/20 13:32 Urine Culture - Preliminary Urine Clean Catch Escherichia Coli Discharge Plan Discharge Attending physician on discharge: Antelmo Harper Consulting providers: Marcin Ghotra Discharging Clinician: Antelmo Harper Patient Disposition: Home, Self-Care Activity: may shower and no straining Diet: regular Wound Care Instructions: other - see discharge instructions Discharge Instructions: Apply mupirocin ointment to drain site wound three times daily May shower, pat dry around steri-str
[2020-08-14] MEDS: MUPIROCIN 2% OINT 22 GM TUBE 1 APPLIC TOPICAL ×2 (12:37→16:27)
[2020-08-14 14:00] VITALS: BP 112/58; PULSE 80; RESP 16; TEMP 36.8; O2SAT 99
== END 2020-08-14 16:38 | disposition home or self-care (01) ==
LOC: ANHED 15:10 → ANH2MED 15:30
PROVIDERS: Emergency Medicine Emergency Medical Services; Admitting Provider Surgery; Emergency Provider Emergency Medicine; PCP Surgery; Visit Provider Surgery
DX: K52.9 Noninfective gastroenteritis and colitis, unspecified (principal); K57.32 Diverticulitis of large intestine without perforation or abscess without bleeding; E86.0 Dehydration; N39.0 Urinary tract infection, site not specified; R53.1 Weakness; Z90.49 Acquired absence of other specified parts of digestive tract; Z87.891 Personal history of nicotine dependence
CPT/HCPCS: 36415; 74177; 74270; 80048; 80053; 81001; 83690; 83735; 84100; 85025; 85027; 87045; 87046; 87077; 87086; 87088; 87186; 87324; 87427; 96361; 96365; 96366; 96375; 96376; 99285; A9270; G0378; G0379; J0131; J2405; J2543; J7030; J7120; Q9967